=== PATIENT | female | born 1980 | race Caucasian/White ===

== ENCOUNTER 2023-01-11 14:08 | Emergency (ER) | payer OTHER, SELFPAY ==
--- NOTE | ~2023-01-11 | XR_ITS ---
EXAMINATION: XR knee LT min 4V DATE: 01/11/2023 14:36 INDICATION: Left knee pain. Fall. TECHNIQUE: 4 views of left knee were obtained. COMPARISON: None. FINDINGS: Bone alignment is normal. No fracture. There is mild osteoarthritis of patellofemoral kaylynn rtment characterized by a tiny osteophyte. There is no knee joint effusion. IMPRESSION: 1. Mild left knee osteoarthritis. Reviewed, dictated and finalized at location A. NATOR
[2023-01-11 14:19] VITALS: BP 145/68; PULSE 82; RESP 16; TEMP 36.9; O2SAT 100
--- NOTE | 2023-01-11 14:52 | ED.GENADULT ---
HPI - General Adult General Chief complaint: Extremity Injury, Lower Stated complaint: lt knee injury Time Seen by Provider: 01/11/23 14:50 Source: patient, RN notes reviewed and old records reviewed Mode of arrival: ambulatory Limitations: no limitations History of Present Illness HPI narrative: 42 year old female presents to [facility] care with complaints of tripping with fall today heard and felt pop to medial aspect of left knee with pain now across anterior aspect of left knee with some swelling and bruising..Patient reports that she had previous ACL repair to her left knee in 1997. Patient is ambulatory walking with stiff leg gait to her left knee, denies any tingling or numbness to left leg or foot, reports took Tramadol for her discomfort which she takes for her connective tissue disorder with pain under control at present. MD complaint: left knee injury Onset (ago): hour(s) (this morning) Location: left and lower extremity (knee) Severity scale (1-10): 3 Treatments prior to arrival: other (tramadol) Related Data Home Medications Medication Instructions Recorded Confirmed aripiprazole 10 mg tablet mg 01/11/23 buspirone 10 mg tablet mg 01/11/23 etonogestrel 0.12 mg-ethinyl vag ring vaginal 01/11/23 estradiol 0.015 mg/24 hr vaginal ring (EluRyng) sumatriptan succinate 50 mg tablet mg PO 01/11/23 triamterene 37.5 cap 01/11/23 mg-hydrochlorothiazide 25 mg capsule Allergies Allergy/AdvReac Type Severity Reaction Status Date / Time No Known Allergies Allergy Verified 01/11/23 14:38 Review of Systems Review of Systems: CONSTITUTIONAL: Denies fever, chills, or sweats. EYES: Denies visual changes, redness, or discharge. ENT: Denies rhinorrhea, congestion, sore throat, or otalgia. CARDIOVASCULAR: Denies chest pain, palpitations, or edema. RESPIRATORY: Denies cough or dyspnea. GASTROINTESTINAL: Denies abdominal pain, nausea, vomiting, or diarrhea. GENITOURINARY: Denies dysuria or hematuria. SKIN: Denies rash or itching. MUSCULOSKELETAL: Denies back pain, positive for left knee pain , bruising and some swelling, or myalgia. NEUROLOGIC: Denies headache, numbness, or weakness. PSYCHIATRIC:Positive history of anxiety or depression. All systems reviewed & are unremarkable except as noted in HPI and below PMFSH Past Medical History Medical History (Updated 01/12/23 @ 11:39 by Carly See NP) Anxiety and depression Arthritis Connective tissue disorder hips Surgical History Surgical History (Updated 01/12/23 @ 11:34 by Carly See NP) H/O toe surgery left great with hardware History of repair of anterior cruciate ligament of left knee Social History Social History (Updated 01/12/23 @ 11:35 by Carly See NP) Smoking status: Unknown if ever smoked Alcohol intake: unknown Substance use type: does not use Living arrangements: with family Gender identity (if verbalized by the patient): Female Comments At time of signature, agree with nursing past medical, surgical, social and family history. There is no relevant family history pertinent to the presenting complaint Exam Narrative: GENERAL: Well-appearing, well-nourished, and in no acute distress. HEAD: Normocephalic, atraumatic. EYES: PERRLA and EOMI. ENT: Nares clear, no rhinorrhea or epistaxis. Mucous membranes moist.TM's normal with good light refles, throat pink with no lesions or swelling. NECK: Supple.no lymphadenopathy CHEST: Clear to auscultation. No respiratory distress.SAO2 100% on room air HEART: Regular rate and rhythm. No murmur heard. Normal peripheral pulses. ABDOMEN: Soft, nontender, nondistended, normal active bowel sounds. EXTREMITIES: Normal range of motion. No edema.Exception noted to anterior left knee pain with some swelling and bruising from fall, Circulation and sensation intact to left leg and foot, pain with Rom of left knee. SKIN: Warm, dry, no rash. NEURO: No focal deficits. Alert and orien
== END 2023-01-11 15:19 | disposition home or self-care (01) ==
PROVIDERS: Emergency Provider Registered Nurse
DX: S83.92XA Sprain of unspecified site of left knee, initial encounter (principal); W01.0XXA Fall on same level from slipping, tripping and stumbling without subsequent striking against object, initial encounter; M19.90 Unspecified osteoarthritis, unspecified site; L94.9 Localized connective tissue disorder, unspecified
CPT/HCPCS: 73564; 99213; G0463

== ENCOUNTER 2023-06-04 15:32 | Emergency (ER) | payer OTHER, SELFPAY ==
[2023-06-04 15:44] VITALS: BP 122/84; PULSE 76; RESP 16; TEMP 36.6; O2SAT 98
--- NOTE | 2023-06-04 16:16 | ED.DENTAL ---
HPI - Dental/Oral General Chief complaint: Dental/Oral Stated complaint: DENTAL PAIN Time Seen by Provider: 06/04/23 16:11 Source: patient, RN notes reviewed and old records reviewed Mode of arrival: ambulatory Limitations: no limitations History of Present Illness HPI Narrative: 42 year old female who presents to [facility] care with complaints of having dental extraction to left lower gums X4 teeth 3 days ago with Tylenol# 3 and Motrin 800mg prescribed for her discomfort. Patient reports that she has swelling and pain left side of jaw which has not been decreased with her pain medications with increase since yesterday evening. Patient is concerned for infection due to increased swelling or dry socket. Patient has no trismus or any Boris angina is able to control oral secretions on own power. Patient reports that she called her dentist but is out of office on Wednesday.. MD Complaint: tooth pain Duration: constant Severity scale (1-10): 6 Treatment prior to arrival: oral analgesic Related Data Home Medications Medication Instructions Recorded Confirmed aripiprazole 10 mg tablet mg 01/11/23 buspirone 10 mg tablet mg 01/11/23 etonogestrel 0.12 mg-ethinyl vag ring vaginal 01/11/23 estradiol 0.015 mg/24 hr vaginal ring (EluRyng) sumatriptan succinate 50 mg tablet mg PO 01/11/23 triamterene 37.5 cap 01/11/23 mg-hydrochlorothiazide 25 mg capsule Allergies Allergy/AdvReac Type Severity Reaction Status Date / Time No Known Allergies Allergy Verified 01/11/23 14:38 Review of Systems Review of Systems: CONSTITUTIONAL: Denies fever, chills, or sweats. ENT: Denies rhinorrhea, congestion, sore throat, or otalgia. Reports dental pain where 4 teeth were removed 3 days ago from left lower jaw area with some jaw pain and some swelling CARDIOVASCULAR: Denies chest pain, palpitations, or edema. RESPIRATORY: Denies cough or dyspnea. SKIN: Denies rash or itching. MUSCULOSKELETAL: Denies myalgia. NEUROLOGIC: Denies headache All systems reviewed & are unremarkable except as noted in HPI and below PMFSH Past Medical History Medical History (Updated 06/05/23 @ 00:01 by Manny Linda) Anxiety and depression Arthritis Connective tissue disorder hips Surgical History Surgical History (Updated 01/12/23 @ 11:34 by Carly See NP) H/O toe surgery left great with hardware History of repair of anterior cruciate ligament of left knee Social History Social History (Updated 06/05/23 @ 11:16 by Carly See NP) Smoking status: Former smoker Tobacco type: cigarettes Alcohol intake: unknown Substance use type: does not use Living arrangements: with family Gender identity (if verbalized by the patient): Female Comments At time of signature, agree with nursing past medical, surgical, social and family history. There is no relevant family history pertinent to the presenting complaint Exam Narrative: GENERAL: Well-appearing, well-nourished, and in no acute distress. HEAD: Normocephalic, atraumatic. EYES: PERRLA and EOMI. ENT: Nares clear, no rhinorrhea or epistaxis. Mucous membranes moist. Missing teeth, is in process of getting dentures has received upper dentures and now had 4 teeth removed from left lower jaw 3 days ago, some redness of gums noted left lower jaw area with no drainage, patient does have some stated left jaw pain and some swelling, reports that pain has increased since lat evening. taking prescribed meds NECK: Supple.no lymphadenopathy CHEST: Clear to auscultation. No respiratory distress.no trismus or any Boris angina able to control own oral secretions HEART: Regular rate and rhythm. No murmur heard. Normal peripheral pulses. SKIN: Warm, dry, no rash. NEURO: No focal deficits. Alert and oriented x3. Course Course Emergency Course: Patient is aware of diagnosis, understands and agrees to treatment plan. Anticipatory guidance given. Patient agrees to follow-u
== END 2023-06-04 16:27 | disposition home or self-care (01) ==
PROVIDERS: Emergency Provider Registered Nurse; PCP Nurse Practitioner
DX: G89.18 Other acute postprocedural pain (principal); R22.0 Localized swelling, mass and lump, head; Z87.891 Personal history of nicotine dependence; M19.90 Unspecified osteoarthritis, unspecified site; L94.9 Localized connective tissue disorder, unspecified
CPT/HCPCS: 99213; G0463

== ENCOUNTER 2023-08-16 17:42 | Emergency (ER) | payer OTHER, SELFPAY ==
--- NOTE | ~2023-08-16 | XR_ITS ---
EXAM: XR hand RT min 3V DATE: 08/16/2023 17:57 HISTORY: punched wooden sign- hand pain . COMPARISON: None available. FINDINGS: Normal mineralization. Subtle, nondisplaced oblique fracture of the distal aspect of the f ifth metacarpal shaft. No lytic or blastic lesion. Joint spaces are maintained. No erosion or periost eal change. Soft tissues within normal limits. IMPRESSION: Subtle, nondisplaced fracture of the distal aspect of the right fifth metacarpal shaft. Reviewed, dictated and finalized at location K. IMPRESSION: Subtle, nondisplaced fracture of the distal aspect of the right fif th metacarpal shaft.
--- NOTE | 2023-08-16 17:45 | ED.UPPEXIN ---
HPI - Extremity Injury (Upper) General Chief Complaint: Extremity Injury, Upper Stated Complaint: Injured hand Time Seen by Provider: 08/16/23 17:44 Source: patient Mode of arrival: ambulatory Limitations: no limitations History of Present Illness HPI narrative: Missy is a 42-year-old female patient presenting to clinic today with complaints of hand pain x1 day. She reports she punched a would sign yesterday and is now having pain over the 4th and 5th knuckle. Related Data Home Medications Medication Instructions Recorded Confirmed aripiprazole 10 mg tablet 10 mg PO DAILY 01/11/23 08/16/23 buspirone 10 mg tablet 10 mg PO DAILY 01/11/23 08/16/23 etonogestrel 0.12 mg-ethinyl See Rx Instructions .Route .COMPLEX 01/11/23 08/16/23 estradiol 0.015 mg/24 hr vaginal ring (EluRyng) sumatriptan succinate 50 mg tablet 50 mg PO DAILY 01/11/23 08/16/23 triamterene 37.5 37.5 cap PO DAILY 01/11/23 08/16/23 mg-hydrochlorothiazide 25 mg capsule Allergies Allergy/AdvReac Type Severity Reaction Status Date / Time No Known Allergies Allergy Verified 08/16/23 17:51 Review of Systems Review of Systems: Pertinent positives per HPI. Patient denies any fever, chills, rash, headache, visual changes, dizziness, cough, runny nose, sore throat, shortness of breath, chest pain, palpitations, nausea, vomiting, diarrhea, constipation, abdominal pain, or any urinary issues. [facility] Past Medical History Medical History Anxiety and depression Arthritis Connective tissue disorder hips Surgical History Surgical History H/O toe surgery left great with hardware History of repair of anterior cruciate ligament of left knee Social History Social History Smoking status: Former smoker Tobacco type: cigarettes Alcohol intake: unknown Substance use type: does not use Living arrangements: with family Gender identity (if verbalized by the patient): Female Comments At the time of my signature, I reviewed and agree with the nursing past medical, surgical, social, and family history. There is no relevant family history pertinent to the patient complaint. Exam Narrative: General: Well-developed, well nourished, in no apparent distress Head: Normocephalic, atraumatic. Cardio: Regular rate and rhythm, s1 and s2 normal, no murmur appreciated. Resp: Clear to auscultation bilaterally, no rhonchi, rales, wheezing or rubs. Musculoskeletal: No deformity, tender to palpation over the 4th and 5th metacarpals and over the knuckles of the 4th and 5th fingers, limited range of motion due to pain and swelling, muscle strength strong and equal, peripheral pulse strong, no edema, no cyanosis, normal gait and station Course Course Emergency Course: Portions of this record may have been created with voice recognition software. Level of Care: Express Care Visit Vital Signs Vital signs: Vital signs reviewed MDM - Extremity Injury (Upper) MDM Narrative Medical decision making narrative: At the time of visit patient is resting comfortably on the exam table. X-ray shows a nondisplaced subtle distal fracture of the right 5th metacarpal. Ulnar gutter splint was applied and supportive measures were discussed with the patient she voiced understanding discharge instructions. We will have her follow-up with orthopedic and cause office on Wednesday. Arm sling was given. Work note was also given. Differential Diagnosis Differential diagnosis: Likely dislocation of finger, fracture of hand and other (Hand contusion) Imaging Data Radiologist's impression: ITS Impressions Hand X-Ray 08/16/23 17:59 IMPRESSION: Subtle, nondisplaced fracture of the distal aspect of the right fifth metacarpal shaft. Discharge Plan Discharge Clinical Impression
[2023-08-16 17:57] VITALS: BP 139/75; PULSE 78; RESP 16; TEMP 36.3; O2SAT 100
== END 2023-08-16 18:32 | disposition home or self-care (01) ==
PROVIDERS: Emergency Provider Nurse Practitioner Family; PCP Nurse Practitioner
DX: S62.396A Other fracture of fifth metacarpal bone, right hand, initial encounter for closed fracture (principal); F32.A Depression, unspecified; F41.9 Anxiety disorder, unspecified; Z87.891 Personal history of nicotine dependence; Z79.899 Other long term (current) drug therapy; W22.09XA Striking against other stationary object, initial encounter
CPT/HCPCS: 29125; 73130; 99214; A4565; G0463

== ENCOUNTER 2023-10-22 11:05 | Emergency (ER) | payer OTHER, SELFPAY ==
[2023-10-22 11:44] VITALS: BP 118/76; PULSE 92; RESP 16; TEMP 36.8; O2SAT 100
--- NOTE | 2023-10-22 12:35 | ED.URI ---
HPI - URI/Sore Throat General Chief Complaint: Upper Respiratory Infection Stated Complaint: Fever;Cough;Congestion;Body aches Time Seen by Provider: 10/22/23 12:20 Source: family and RN notes reviewed Mode of arrival: ambulatory Limitations: no limitations History of Present Illness HPI Narrative: 43-year-old female who presents to [facility] with complaints of 101.1F fever with chills, headache, cough which is non- productive, head congestion and sneezing since Wednesday morning. Patient reports that she has not taken any medication for her symptoms reports she has been sleeping and drinking fluids. Patient reports that she has generalized body aches which she rates as 6/10 on pain scale. MD elicited complaint: fever, cough, rhinorrhea, nasal congestion and other (body aches) Onset (ago): day(s) (day 3 of symptoms) Pain scale (0-10): 6 Able to tolerate fluids by mouth: Yes Treatments prior to arrival: none Related Data Home Medications Medication Instructions Recorded Confirmed aripiprazole 10 mg tablet 10 mg PO DAILY 01/11/23 10/22/23 buspirone 10 mg tablet 10 mg PO DAILY 01/11/23 10/22/23 etonogestrel 0.12 mg-ethinyl See Rx Instructions .Route .COMPLEX 01/11/23 10/22/23 estradiol 0.015 mg/24 hr vaginal ring (EluRyng) sumatriptan succinate 50 mg tablet See Rx Instructions .Route .COMPLEX 01/11/23 10/22/23 triamterene 37.5 37.5 cap PO DAILY 01/11/23 10/22/23 mg-hydrochlorothiazide 25 mg capsule Allergies Allergy/AdvReac Type Severity Reaction Status Date / Time No Known Allergies Allergy Verified 10/22/23 11:41 Review of Systems Review of Systems: CONSTITUTIONAL: Reports malaise, chills, sweats, or fever. EYES: Denies visual changes, redness, or discharge. ENT: Reports rhinorrhea, congestion, sinus pain,no otalgia and no sore throat. CARDIOVASCULAR: Denies chest pain, palpitations, or edema. RESPIRATORY: Reports cough.? Denies dyspnea. GASTROINTESTINAL: Denies abdominal pain, nausea, vomiting, diarrhea SKIN: Denies rash or itching. MUSCULOSKELETAL: Reports myalgia. NEUROLOGIC: reports headache. 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 Migraine Surgical History Surgical History H/O toe surgery left great with hardware History of repair of anterior cruciate ligament of left knee Social History Social History (Updated 10/22/23 @ 12:54 by Carly See NP) Smoking packs per day: 0.5 Smoking cigarettes per day: 10.0 Years smoked: 30 Smoking pack-years: 15.00 Smoking status: Current every day smoker Tobacco type: cigarettes Alcohol intake: current Alcohol use details: rare social Substance use type: does not use Living arrangements: with family Gender identity (if verbalized by the patient): Female Comments At time of signature, agree with nursing past medical, surgical, social and family history. There is no relevant family history pertinent to the presenting complaint Exam Narrative: GENERAL: Ill-appearing, well-nourished, and in no acute distress. HEAD: Normocephalic EYES: PERRLA, conjunctivae clear ENT: Nares clear, turbinates edematous and erythematous, clear discharge. Mucous membranes moist. TM pearly blanc with dull light reflex bilaterally; no tragal tenderness. Oropharynx erythematous without lesions. Tonsils not enlarged and without exudate, no drooling, no hoarseness, no trismus, uvula midline.post nasal drainage noted NECK: Supple. No lymphadenopathy CHEST: Clear to auscultation, breath sounds equal. No wheezing, rhonchi, rales, or stridor. No respiratory distress, speaks in full sentences.cough present, SAO2 100% on room air HEART: Regula
== END 2023-10-22 13:07 | disposition home or self-care (01) ==
PROVIDERS: Emergency Provider Registered Nurse; PCP Nurse Practitioner
DX: J10.1 Influenza due to other identified influenza virus with other respiratory manifestations (principal); Z20.822 Contact with and (suspected) exposure to COVID-19; F17.210 Nicotine dependence, cigarettes, uncomplicated; M19.90 Unspecified osteoarthritis, unspecified site; H81.03 Meniere's disease, bilateral; F41.9 Anxiety disorder, unspecified; F32.A Depression, unspecified
CPT/HCPCS: 87426; 87804; 99213; C9803; G0463

== ENCOUNTER 2024-02-28 14:40 | Emergency (ER) | payer OTHER, SELFPAY ==
--- NOTE | 2024-02-28 14:47 | ED.EAR ---
HPI - Ear Problem General Chief complaint: Ear Stated complaint: R ear pain Time Seen by Provider: 02/28/24 14:56 Source: patient and RN notes reviewed Mode of arrival: ambulatory Limitations: no limitations History of Present Illness HPI Narrative: 43-year-old female presents with concern for right ear pain since this morning. She reports she has had a couple day history of nasal congestion or rhinorrhea. She denies fevers. Denies drainage from the ear. MD Complaint: ear pain Related Data Home Medications Medication Instructions Recorded Confirmed aripiprazole 10 mg tablet 10 mg PO DAILY 01/11/23 02/28/24 buspirone 10 mg tablet 10 mg PO DAILY 01/11/23 02/28/24 etonogestrel 0.12 mg-ethinyl See Rx Instructions .Route .COMPLEX 01/11/23 02/28/24 estradiol 0.015 mg/24 hr vaginal ring (EluRyng) sumatriptan succinate 50 mg tablet See Rx Instructions .Route .COMPLEX 01/11/23 02/28/24 triamterene 37.5 37.5 cap PO DAILY 01/11/23 02/28/24 mg-hydrochlorothiazide 25 mg capsule Allergies Allergy/AdvReac Type Severity Reaction Status Date / Time No Known Allergies Allergy Verified 02/28/24 14:54 Review of Systems Review of Systems: CONSTITUTIONAL: Denies malaise, chills, sweats, or fever. EYES: Denies visual changes, redness, or discharge. ENT: Reports rhinorrhea, congestion. Denies sinus pain, and sore throat. Reports right ear pain CARDIOVASCULAR: Denies chest pain, palpitations, or edema. RESPIRATORY: Denies cough. Denies dyspnea. GASTROINTESTINAL: Denies abdominal pain, nausea, vomiting, diarrhea SKIN: Denies rash or itching. MUSCULOSKELETAL: Denies myalgia. NEUROLOGIC: Denies headache. 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 Migraine Surgical History Surgical History H/O toe surgery left great with hardware History of repair of anterior cruciate ligament of left knee Social History Social History (Updated 10/22/23 @ 12:54 by Carly See NP) Smoking packs per day: 0.5 Smoking cigarettes per day: 10.0 Years smoked: 30 Smoking pack-years: 15.00 Smoking status: Current every day smoker Tobacco type: cigarettes Alcohol intake: current Alcohol use details: rare social Substance use type: does not use Living arrangements: with family Gender identity (if verbalized by the patient): Female Comments At time of signature, agree with nursing past medical, surgical, social and family history. There is no relevant family history pertinent to the presenting complaint Exam Narrative: GENERAL: Well-appearing, well-nourished, and in no acute distress. HEAD: Normocephalic EYES: PERRLA, conjunctivae clear ENT: Nares clear, turbinates edematous, clear discharge. Mucous membranes moist. TM pearly blanc with sharp light reflex bilaterally; no tragal tenderness. Oropharynx not erythematous without lesions. Tonsils not enlarged and without exudate, no drooling, no hoarseness, no trismus, uvula midline. NECK: Supple. No lymphadenopathy CHEST: Clear to auscultation, breath sounds equal. No wheezing, rhonchi, rales, or stridor. No respiratory distress, speaks in full sentences. HEART: Regular rate and rhythm. No murmur heard. SKIN: Warm, dry, no rash. NEURO: Alert and oriented x3. PSYCH: Normal mood and affect Course Course Emergency Course: Patient is aware of diagnosis, understands and agrees to treatment plan. Anticipatory guidance given. Patient agrees to follow-up as directed and is aware of reasons to seek care at the emergency department. Portions of this record may have been created with voice recognition software Level of Care: Express Care Visit Vital Signs Vital signs: Reviewed.
[2024-02-28 14:52] VITALS: BP 122/76; PULSE 73; RESP 18; TEMP 36.7; O2SAT 98
[2024-02-28 14:55] VITALS: BP 122/76; PULSE 73; RESP 18; TEMP 36.7; O2SAT 98
== END 2024-02-28 15:10 | disposition home or self-care (01) ==
PROVIDERS: Emergency Provider Nurse Practitioner; PCP Nurse Practitioner
DX: H92.01 Otalgia, right ear (principal); F17.210 Nicotine dependence, cigarettes, uncomplicated; M19.90 Unspecified osteoarthritis, unspecified site; F41.9 Anxiety disorder, unspecified; F32.A Depression, unspecified; L94.9 Localized connective tissue disorder, unspecified
CPT/HCPCS: 99213; G0463

== ENCOUNTER 2024-07-24 17:31 | Emergency (ER) | payer OTHER, SELFPAY ==
--- NOTE | ~2024-07-24 | XR_ITS ---
EXAM: XR knee RT min 4V DATE: 07/24/2024 19:12 HISTORY: Missed a step on Wednesday. Posterior lt knee pain . COMPARISON: None available. FINDINGS: Normal mineralization. Irregular ossific densities adjacent to the lateral condyle and the head of the fibula. No lytic or blastic lesion. Minimal tricompartmental osteoarthritic change. No e rosion or periosteal change. Soft tissues within normal limits. IMPRESSION: Possible acute versus chronic avulsion fractures at the origin of the LCL as well as the arcuate ligament complex. Consider MRI of the knee for further evaluation. Reviewed, dictated and finalized at location K. IMPRESSION: Possible acute versus chronic avulsion fractures at the origin of t he LCL as well as the arcuate ligament complex. Consider MRI of the knee for fu rther evaluation.
[2024-07-24 18:02] VITALS: BP 154/59; PULSE 64; RESP 18; TEMP 36.6; O2SAT 99
[2024-07-24 18:03] VITALS: BP 154/59; PULSE 64; RESP 18; TEMP 36.6; O2SAT 99
--- NOTE | 2024-07-24 18:49 | ED.LOWEXIN ---
HPI - Extremity Injury (Lower) General Chief Complaint: Extremity Injury, Lower Stated Complaint: RT Knee Pain Time Seen by Provider: 07/24/24 18:49 Source: patient, RN notes reviewed and old records reviewed Mode of arrival: ambulatory Limitations: no limitations History of Present Illness HPI Narrative: Patient presents with complaints of right knee pain after missing a step 3 days ago. She denies any falls, reports that she had a twisting type injury to the knee. She has had pain since that time. She has been icing it and using [id number] medications with poor relief. She reports sensation of the affected knee catching . She denies other injury and trauma. Voices no other concerns or complaints at this time. Related Data Home Medications Medication Instructions Recorded Confirmed aripiprazole 10 mg tablet 10 mg PO DAILY 01/11/23 07/24/24 buspirone 10 mg tablet 10 mg PO DAILY 01/11/23 07/24/24 etonogestrel 0.12 mg-ethinyl See Rx Instructions .Route .COMPLEX 01/11/23 07/24/24 estradiol 0.015 mg/24 hr vaginal ring (EluRyng) sumatriptan succinate 50 mg tablet See Rx Instructions .Route .COMPLEX 01/11/23 07/24/24 triamterene 37.5 37.5 cap PO DAILY 01/11/23 07/24/24 mg-hydrochlorothiazide 25 mg capsule Allergies Allergy/AdvReac Type Severity Reaction Status Date / Time No Known Allergies Allergy Verified 07/24/24 18:03 Review of Systems Review of Systems: All systems reviewed & are unremarkable except as noted in HPI and below Constitutional: Constitutional: Reports no additional constitutional complaints ENT: Reports system reviewed and no additional complaints, except as documented Cardiovascular: Cardiovascular: Reports no additional cardiovascular complaints Respiratory: Respiratory: Reports no additional respiratory complaints Gastrointestinal: Gastrointestinal: Reports no additional gastrointestinal complaints Musculoskeletal: Musculoskeletal: Reports as per HPI and Reports arthralgias (right knee) [facility] Past Medical History Medical History Anxiety and depression Arthritis 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 Migraine Surgical History Surgical History H/O toe surgery left great with hardware History of repair of anterior cruciate ligament of left knee Social History Social History (Updated 10/22/23 @ 12:54 by Carly See NP) Smoking packs per day: 0.5 Smoking cigarettes per day: 10.0 Years smoked: 30 Smoking pack-years: 15.00 Smoking status: Current every day smoker Tobacco type: cigarettes Alcohol intake: current Alcohol use details: rare social Substance use type: does not use Living arrangements: with family Gender identity (if verbalized by the patient): Female Comments At the time of my signature, I reviewed and agree with the nursing past medical, surgical, social, and family history. There is no relevant family history pertinent to the patient complaint. Exam Const: General: cooperative, no acute distress, alert and awake Orientation/consciousness: oriented to person, oriented to place and oriented to time HENMT: Head: normal to inspection Resp: Effort & Inspection: normal respiratory effort and able to speak in complete sentences Auscultation: clear to auscultation bilaterally, no crackles, no rales, no rhonchi and no wheezes Cardio: Palpation: normal PMI Rate: regular rate Rhythm: regular rhythm Heart sounds: S1 normal heart sound present and S2 normal heart sound present Neuro: General: oriented to person, oriented to place and oriented to time Cranial nerves: Yes CN's II-XII intact bilaterally Extrem: Right lower extremity: knee Details: tenderness Location: of the patella and crepitus Psych: Appearance: grossly normal Thought process: Normal thought process present Insight: Kali
== END 2024-07-24 19:43 | disposition home or self-care (01) ==
PROVIDERS: Emergency Provider Nurse Practitioner Family; PCP Nurse Practitioner
DX: S89.91XA Unspecified injury of right lower leg, initial encounter (principal); X50.9XXA Other and unspecified overexertion or strenuous movements or postures, initial encounter; R03.0 Elevated blood-pressure reading, without diagnosis of hypertension; M19.90 Unspecified osteoarthritis, unspecified site; L94.9 Localized connective tissue disorder, unspecified; H81.03 Meniere's disease, bilateral; F17.210 Nicotine dependence, cigarettes, uncomplicated; F41.9 Anxiety disorder, unspecified; F32.A Depression, unspecified
CPT/HCPCS: 73564; 99213; G0463

== ENCOUNTER 2024-08-16 08:07 | Outpatient (CLI) | payer OTHER, SELFPAY ==
--- NOTE | ~2024-08-16 | MR_ITS ---
EXAMINATION: MR knee RT wo con DATE: 08/16/2024 08:44 INDICATION: Right knee injury. TECHNIQUE: Magnetic resonance imaging (MRI) of the right knee was performed without intravenous contr ast. Sequences included axial PD-weighted FS FSE, coronal PD-weighted FSE and PD-weighted FS FSE, sag ittal PD-weighted FSE, and sagittal T2-weighted FS FSE. COMPARISON: Right knee radiographs 07/24/2024 FINDINGS: Medial compartment: Medial meniscus is normal. There is shallow partial-thickness cartilage loss of tibial condyle and fe moral condyle. Lateral compartment: Lateral meniscus is normal. Lateral compartment cartilage is normal. Patellofemoral compartment: Patellar cartilage is normal. Trochlear cartilage is normal. Ligaments and tendons: The anterior and posterior cruciate ligaments are normal. There are changes of prior sprains of media l collateral ligament and fibular collateral ligament characterized by thickening and increased signa l intensity proximally. There is mild patellar tendinopathy. Fluid: There is a small knee joint effusion. IMPRESSION: 1. Mild chondrosis of medial compartment. 2. Small knee joint effusion. Reviewed, dictated and finalized at location A.
== END 2024-08-16 08:08 | disposition home or self-care (01) ==
LOC: MICIMG 08:09
PROVIDERS: PCP Nurse Practitioner; Visit Provider Nurse Practitioner
DX: S89.91XD Unspecified injury of right lower leg, subsequent encounter (principal); M94.261 Chondromalacia, right knee; M25.461 Effusion, right knee; X58.XXXD Exposure to other specified factors, subsequent encounter
CPT/HCPCS: 73721

== ENCOUNTER 2025-08-13 01:40 | Day surgery (SDC) | payer OTHER, SELFPAY ==
[2025-08-03 15:17] VITALS: BMI 33.8
--- NOTE | 2025-08-03 15:25 | PC.NURSE ---
[facility] has started construction of its new state of the art ER which will open Spring 2026. With this, we anticipate parking may be a challenge for some our surgical patients and families. Parking spaces are limited but are available for all Surgical, obstetrics, and ER patients sharing this lot. If you arrive and find you are having a hard time finding a parking space, please note that we understand the challenges, please drive around the hospital and park near Hospital Entrance 1. When you enter this entrance, you can ask a volunteer to direct or take you back to the surgical waiting area to check in. We appreciate everyone?s understanding of these expected challenges while we build for your future. Report to the Outpatient Waiting Room, entrance under the green pavilion located off [address], at time _0700_ on date _[id number]_. Planned Procedure Time: _0900_.? Time changes happen often and if your time is changed the preop area will call you the afternoon before. - You and your visitor will be asked to self-screen and do not enter if you have any COVID symptoms. Please call surgeon if you need to reschedule. - A mask is optional within the hospital at this time. Patients may have clear liquids (water, carbonated beverages, clear teas, apple juice) until 3 hours prior to surgery with a maximum of 20 ounces. - No food from midnight until time of surgery and no smoking, or chewing tobacco (or any form of nicotine). No chewing gum, candy or mints. Take only the following medications with a SIP of water on the morning of surgery: ___Aripiprazole, and Buspirone.___ DO NOT STOP ANY OF YOUR OTHER PRESCRIPTION MEDICATIONS PRIOR TO SURGERY EXCEPT THE FOLLOWING Hold all vitamins and supplements for 3 days per anesthesiologist. Medications to discontinue per physician Date to take last dose Please no make-up, nail korean, hairspray, perfume, deodorant, or body powder the day of surgery.? No jewelry (including any body piercings) or valuables the day of surgery, leave them at home.? Please take a shower or bath the night before, or the morning of, surgery with an antibacterial soap.? Wear comfortable, loose fitting clothing.? - Jewelry must be removed prior to entering the operating room.? Rings and piercings that are not removed may be cut off. - The hospital will not accept responsibility for valuables.? - Please leave all valuables, including medications, at home the day of surgery. If you are going home after surgery, a licensed drop hammer pile driver operator must drive you home.? - NO public transportation without another adult if you receive anesthesia. - We recommend that an adult stay with you for 24 hours following discharge. - We also recommend that you do not drive, make important decision, drink alcoholic beverages, or take any drugs that were not prescribed by your health care provider for at least 24 hours after your discharge time. Follow any additional instructions given to you from your surgeon. Telephone instructions given to __Missy___and asked if any additional questions and then verbalized understanding. Patient advised to call surgeon office or pre surgery nurse liaison [phone] if any additional questions.
[2025-08-13] VITALS (8 sets, daily range): BP systolic 100–127; BP diastolic 54–73; PULSE 58–105; RESP 12–24; TEMP 36.2–36.6; O2SAT 98–100
--- OUTSIDE RECORDS SUMMARY | 2025-08-13 01:43 | XMS_ITS | Clinical Summary ---
Author Organization [facility] [address] Address [address] [place] [address] Care Team Providers Care Sieve Grader Tender Name Role Phone Sierra Martin Jane SHASHANK Primary Care Provider [phone] Allergies No known active allergies Medications busPIRone (BUSPAR) 10 mg tablet Take 1 tablet (10 mg total) by mouth daily 2 Active etonogestreL-et hinyl estradioL (NUVARING, ELURYNG) 0.12-0.015 mg/24 hr vaginal ring INSERT 1 R[address] VAGINALLY. LEAVE IN PLACE FOR 21 DAYS, THEN REMOVE. LEAVE OUT FOR 7 DAYS BEFORE REPEAT 8 Active ARIPiprazole (ABILIFY) 10 mg tablet Take 1 tablet (10 mg total) by mouth daily 4 Active traZODone (DESYREL) 50 mg tablet Take 1 tablet (50 mg total) by mouth nightly as needed Active nicotine (NICODERM CQ) [address] 1 patch on the skin daily for 24 hours 30 patch 5 Active nicotine polacrilex (NICORETTE) 4 mg gum Chew 1 each (4 mg total) as needed for smoking cessation 100 each 5 Active Active Problems Problem Noted Date Diagnosed Date TALISHA (acute kidney injury) 05/25/2025 Migraine syndrome 05/25/2025 Sensorineural hearing loss ( SNHL) of right ear with unrestricted hearing of left ear 05/27/2022 Assessment & Plan (07/06/2022 8:33 PM CDT): It actually has gotten worse since I last saw her. This is despite treating with steroids. I am recommending an MRI scan further evaluate. Consider intratympanic steroids if negative. She understands. Assessment & Plan (05/27/2022 7:37 PM CDT): Reviewed her audiogram with her. She has a low-frequency sensorineural hearing loss involving the right ear. This would be pretty consistent with Meniere's disease. I recommended treating with a steroid. I am also going to place her on a diuretic. I think that her follow up in about 4 weeks and will retest her hearing at that time. Meniere's disease of right ear 05/27/2022 Assessment & Plan (07/01/2022 12:57 PM CDT): She continues with symptoms although states that the symptoms are better. I am going to check up VNG to evaluate vestibular function. I will call her when I have results. Assessment & Plan (05/27/2022 7:38 PM CDT): I talked with the patient about Meniere's disease. It can usually be treated medically which often times means prescribing a steroid to help with acute symptoms. Sometimes a diuretic will be included if the symptoms are frequently recurrent or persistent. A low-salt diet is also recommended because most of the evidence shows that Meniere's disease is caused by excess fluid in the inner ear space. Sometimes Meniere's disease can be refractory to medical treatment and in those cases there are various surgical procedures that may be recommended. I am recommending treating with a steroid and I would like to get her started on antibiotic. She would like to go ahead and do that also. I also talked with her about low-salt diet which is very important. She understands this. The plan is for a follow-up in about a month. Dizziness and giddiness 05/27/2022 Assessment & Plan (05/27/2022 7:36 PM CDT): Likely due to Meniere's disease. Mood disorder 02/14/2020 Decreased libido 09/14/2018 Anxiety 06/01/2018 Viral bronchitis 11/26/2017 Dysmenorrhea 08/11/2017 Migraines 08/04/2017 Dyspareunia, female 07/28/2017 Irregular menses 07/28/2017 Encounters Date Type Department Care Team Description 05/25/2025 3:17 PM CDT - 05/26/2025 10:21 AM CDT Hospital Encounter [place] [address] Med Surg [facility] [place] [address] Nicola Baez MD [place], Katy Lopez MD TALISHA (acute kidney injury) (Primary Dx); Nonintractable headache, unspecified chronicity pattern, unspecified headache type; Stroke-like symptoms Discharge Disposition: Discharge to home or self care from Last 3 Months Immunizations Immunization Administration Dates Next Due DTP 06/02/1989, 6,03/01/1982,12/28,1981 H1N1 All Forms 10/15/2009 Influenza, Quadrivalent, Spl it, Intramuscular 10/21/2015 Influenza, Trivalent, IM (MDV) 09/06/2014 Influenza, Unspecified 10/11/2013,10/28/2012 MMR 08/01/1998,01/09/1983 OPV 06/07/1986, 2,1981,11/04 OPV, Unspecified 06/07/1986, 2,1981,11/04 Pneumococcal Polysaccharide PPV23 01/15/2015 Td, adsorbed 08/01/1998 Tdap 11/13/2014,11/08/2014 Surgical History Surgery Date Site/Laterality Comments KNEE SURGERY Left Medical History Medical History Date Comments Allergic rhinitis Cancer (HCC) Depression Tinnitus Dizziness Family History Medical History Relation Name Comments Diabetes Brother Cancer Father Diabetes Father Relation Name Status Comments Brother Father Social History Tobacco Use Types Packs/Day Years Used Date Smoking Tobacco: Former Cigarettes Smokeless Tobacco: Never Personal Safety Answer Date Recorded Have you ever been in or are you currently in a harmful physical or emotional relationship or is someone making you feel afraid or unsafe? Denies 05/25/2025 Comments No Sex and Gender Information Value Date Recorded Sex Assigned at Not on file Legal Sex Female 11:48 PM [employer] Gender Identity Not on file Sexual Orientation Not on file Obstetrics History Last Filed Vital Signs Vital Sign Reading Time Taken Comments Blood Pressure 105/56 05/26/2025 8:08 AM CDT Pulse 64 05/26/2025 8:08 AM CDT Temperature 37.1 C (98.8 F) 05/26/2025 8:08 AM CDT Respiratory Rate 18 05/26/2025 8:08 AM CDT Oxygen Saturation 95% 05/26/2025 8:08 AM CDT Inhaled Oxygen Concentration - - Weight 89.5 kg (197 lb 5 oz) 05/25/2025 8:43 PM CDT Height 157.5 cm (5' 2) 05/25/2025 8:53 PM CDT Body Mass Index 36.09 05/25/2025 8:43 PM CDT Plan of Treatment Health Maintenance Due Date Last Done Comments Depression Screening 1981 Hepatitis C Screening 1981 Varicella Vaccines (1 of 2 - 13+ 2-dose series) 08/29/1998 Hepatitis B Screening 1999 Regular Well Visit/Exam 18-64 1999 HPV Vaccines (1 - 3-dose SCDM series) 2008 Cervical Cancer Screening 09/17/2022 09/17/2021 DTaP/Tdap/Td Vaccine (7 - Td or Tdap) 11/13/2024 11/13/2014, 11/08/2014, 08/01/1998, Additional history exists Influenza Vaccine (#1) 2025 5, 09/06/2014, 10/11/2013, Additional history exists Breast Cancer Screening-Mammogram 12/06/2025 12/06/2024, 12/06/2024, 12/08/2023, Additional history exists Pneumococcal vaccine <65 Aged Out 01/15/2015 No longer eligible based on patient's age to complete this topic Procedures Procedure Name Priority Date/Time Associated Diagnosis Comments EGFR Routine 05/26/2025 3:13 AM CDT DIFFERENTIAL AUTO Routine 05/26/2025 3:1 3 AM CDT CBC WITH AUTO DIFFERENTIAL Routine 05/26/2025 3:13 AM CDT BASIC METABOLIC PANEL Routine 05/26/2025 3:13 AM CDT TROPONIN T HIGH-SENSITIVITY 6-HOUR Timed 05/25/2025 9:13 PM CDT CRP (ACUTE PHASE) Routine 05/25/2025 7:2 6 PM CDT ERYTHROCYTE SEDIMENTATION RATE Routine 05/25/2025 7:26 PM CDT TROPONIN T HIGH-SENSITIVITY 4-HR Timed 05/25/2025 7:26 PM CDT TROPONIN T HIGH-SENSITIVITY 2-HOUR Timed 05/25/2025 5:26 PM CDT MRI BRAIN HYPERACUTE STROKE W WO CONTRAST Critical/Life-T hreatening 05/25/2025 5:00 PM CDT POCT CREATININE FOR CONTRAST EVALUATION Routine 05/25/2025 4:12 PM CDT URINALYSIS AND REFLEX TO MICROSCOPIC AND CULTURE STAT 05/25/2025 4:11 PM CDT EGFR STAT 05/25/2025 4:09 PM CDT BASIC METABOLIC PANEL STAT 05/25/2025 4:09 PM CDT POCT HCG, URINE Routine 05/25/2025 4:05 PM CDT ECG 12-LEAD STAT 05/25/2025 3:[address] STROKE PROTOCOL WO CONTRAST Critical/Life-T hreatening 05/25/2025 3:13 PM CDT APTT STAT 05/25/2025 3:10 PM CDT PROTIME-INR STAT 05/25/2025 3:10 PM CDT EGFR STAT 05/25/2025 3:05 PM CDT DIFFERENTIAL AUTO STAT 05/25/2025 3:0 5 PM CDT TROPONIN T HIGH-SENSITIVITY SERIES (BASELINE, 2HR, 4HR, 6HR) STAT 05/25/2025 3:05 PM CDT COMPREHENSIVE METABOLIC PANEL STAT 05/25/2025 3:05 PM CDT CBC WITH AUTO DIFFERENTIAL STAT 05/25/2025 3:05 PM CDT POCT GLUCOSE DEVICE Routine 05/25/2025 3 :03 PM CDT from Last 3 Months Results * (ABNORMAL) eGFR (05/26/2025 3:13 AM CDT) eGFR 50(L) >=60 mL/min/1. 73 m2 Comment: Interpretive Data Reference Interval Normal >/= 90 mL/min/1.73m2 Mildly decreased* 60 - 89 mL/min/1.73m2 Mildly to moderately decreased 45 - 59 mL/min/1.73m2 Moderately to severely decreased 30 - 44 mL/min/1.73m2 Severely decreased 15 - 29 mL/min/1.73m2 Kidney Failure < 15 mL/min/1.73m2 *Relative to young adult level Estimated glomerular filtration rate is determined by the 2020 CKD-EPI equation recommended by the National Kidney Foundation (A Unifying Approach to GFR Estimation: Recommendations of the NKF-ASK Task Force on Reassessing the Inclusion of Race in Diagnosing Kidney Disease, JASN 202). The CKD-EPI equation should not be used for patients with unstable renal function and has not been validated in children and those over 70. Current interpretive data was last reviewed 2021. Testing performed by: [facility], [address] [place] [address]., [address] Blood 05/26/2025 3:13 AM CDT 05/26/2025 4:17 AM CDT us Katy Perry MD LAB BLOOD ORDERABLES Final Result S[facility]AN [address] [facility] Department [place] [address] * Differential, auto (05/26/2025 3:13 AM CDT) Neutrophil abs 3.38 1.50 - 6.50 K/cumm Comment:Testing performed by : [address] [address] Imm gran abs 0.02 0.00 - 0.10 K/cumm SUSAN Comment:Testing performed by : [address] [address] Lymphocyte abs 2.20 0.80 - 3.30 K/cumm SUSAN Comment:Testing performed by : [address] [address] Monocyte abs 0.50 0.20 - 0.80 K/cumm SUSAN Comment:Testing performed by : [address] [address] Eosinophil abs 0.21 0.00 - 0.50 K/cumm SUSAN Comment:Testing performed by : [address] [address] Basophil abs 0.04 0.00 - 0.10 K/cumm SUSAN Comment:Testing performed by : [address] [address] Neutrophil pct 53.3 % SUSAN Comment: Interpretive Data Percent cell count reference ranges are not reported, since discordance with absolute values may lead to misinterpretation of CBC data. Current Interpretive Data was last revised on 2018. Testing performed by: [address] [address] Imm gran pct 0.3 % SUSAN Comment: Interpretive Data Percent cell count reference ranges are not reported, since discordance with absolute values may lead to misinterpretation of CBC data. Current Interpretive Data was last revised on 2018. Testing performed by: [address] [address] Lymphocyte pct 34.6 % [facility] Comment: Interpretive Data Percent cell count reference ranges are not reported, since discordance with absolute values may lead to misinterpretation of CBC data. Current Interpretive Data was last revised on 2018. Testing performed by: [address] [address] Monocyte pct 7.9 % [facility] Comment: Interpretive Data Percent cell count reference ranges are not reported, since discordance with absolute values may lead to misinterpretation of CBC data. Current Interpretive Data was last revised on 2018. Testing performed by: [address] [address] Eosinophil pct 3.3 % [facility] Comment: Interpretive Data Percent cell count reference ranges are not reported, since discordance with absolute values may lead to misinterpretation of CBC data. Current Interpretive Data was last revised on 2018. Testing performed by: [address] [address] Basophil pct 0.6 % [facility] Comment: Interpretive Data Percent cell count reference ranges are not reported, since discordance with absolute values may lead to misinterpretation of CBC data. Current Interpretive Data was last revised on 2018. Testing performed by: [address] [address] Blood 05/26/2025 3:13 AM CDT 05/26/2025 4:18 AM CDT us Katy Perry MD LAB BLOOD ORDERABLES Final Result [facility] [address] [facility] Department [place] [address] * CBC with auto differential (05/26/2025 3:13 AM CDT) WBC 6.35 3.80 - 9.90 K/cumm Comment:Testing performed by : [address] [address] Hgb 12.5 11.9 - 15.5 g/dL SUSAN Comment:Testing performed by : [address], [address] Hct 36.6 35.6 - 45.5 % SUSAN Comment:Testing performed by : [address], [address] Plt 210 150 - 400 K/cumm SUSAN Comment:Testing performed by : [address] [address] MPV 12.0 9.1 - 12.3 fL SUSAN Comment:Testing performed by : [address], [address] RBC 4.10 3.90 - 5.20 M/cumm SUSAN Comment:Testing performed by : [address], [address] MCV 89.3 81.3 - 96.4 fL SUSAN Comment:Testing performed by : [address], [address] MCH 30.5 27.1 - 33.3 pg SUSAN Comment:Testing performed by : [address], [address] MCHC 34.2 32.3 - 35.7 g/dL SUSAN Comment:Testing performed by : [address], [address] RDW CV 13.0 11.1 - 14.9 % SUSAN Comment:Testing performed by : [address], [address] RDW SD 42.4 35.7 - 48.1 fL SUSAN Comment:Testing performed by : [address], [address] NRBC abs 0.00 0.00 - 0.01 K/cumm SUSAN Comment:Testing performed by : [address], [address] Blood 05/26/2025 3:13 AM CDT 05/26/2025 4:18 AM CDT Katy Perry MD LAB BLOOD ORDERABLES Final Result [facility] [address] [facility] Department [place] [address] * (ABNORMAL) Basic metabolic panel (05/26/2025 3:13 AM CDT) Sodium 140 135 - 145 mmol/L Comment:Testing performed by : [address] [address] Potassium, pl 3.2(L) 3.3 - 4.9 mmol/L SUSAN Comment:Testing performed by : [address] [address] Chloride 105 97 - 110 mmol/L SUSAN Comment:Testing performed by : [address] [address] CO2 24 22 - 32 mmol/L SUSAN Comment:Testing performed by : [address] [address] Anion gap 11 2 - 15 mmol/L SUSAN Comment:Testing performed by : [address] [address] BUN 16 6 - 25 mg/dL SUSAN Comment:Testing performed by : [address] [address] Creatinine 1.36(H) 0.60 - 1.10 mg/dL SUSAN Comment:Testing performed by : [address] [address] Glucose 104 70 - 199 mg/dL SUSAN Comment: Interpretive Data Fasting glucose >/= 126 mg/dl is diagnostic for diabetes. Fasting is defined as no caloric intake for at least 8 hours. Fasting glucose between 100 mg/dl to 125 mg/dl is diagnostic of prediabetes. In a patient with classic symptoms of hyperglycemia or hyperglycemic crisis, a random glucose >/= 200 mg/dl is diagnostic for diabetes. In the absence of unequivocal hyperglycemia, results should be confirmed by repeat testing. The classification and Diagnosis of Diabetes Diabetes Care 2021; 46: S19-S40. Current interpretive data was last revised 2022. Testing performed by: [address] [place] [address] Calcium 8.8 8.5 - 10.3 mg/dL SUSAN SWAN Comment:Testing performed by : [address] [address] Blood 05/26/2025 3:13 AM CDT 05/26/2025 4:17 AM CDT Katy Perry MD LAB BLOOD ORDERABLES Final Result Performing Organization Address City/[facility]/ZIP Co de Phone Number SUSAN [address] [facility] [email or web address] [address] * Troponin T high-sensitivity 6-hour (05/25/2025 9:13 PM CDT) Trop T hs 10 <=14 ng/L Comment: Interpretive Data For further hscTnT resources including the diagnostic algorithm and an aid in interpretation, copy and paste this link: https://nrl.testcatalog.org/show/hsTrop Current Interpretive Data last revised 2020. Testing performed by: [address] [address] Trop T hs delta 2 ng/L SUSAN SWAN Comment:Testing performed by : [address] [address] Trop T hs interp Insignificant SUSAN SWAN Comment:Testing performed by : [address] [address] Blood 05/25/2025 9:13 PM CDT 05/25/2025 9:15 PM CDT us Yovany Mckay MD LAB BLOOD ORDERABLES Final Result Performing Organization Address City/[facility]/ZIP Co de Phone Number SUSAN [address] [facility] [email or web address] [address] * Troponin T high-sensitivity 4-hour (05/25/2025 7:26 PM CDT) Trop T hs 9 <=14 ng/L Comment: Interpretive Data For further hscTnT resources including the diagnostic algorithm and an aid in interpretation, copy and paste this link: https://nrl.testcatalog.org/show/hsTrop Current Interpretive Data last revised 2020. Testing performed by: [address] [address] Trop T hs delta 1 ng/L SUSAN Comment:Testing performed by : [address] [address] Trop T hs interp Insignificant SUSAN Comment:Testing performed by : [address] [address] Blood 05/25/2025 7:26 PM CDT 05/25/2025 7:36 PM CDT us Yovany Mckay MD LAB BLOOD ORDERABLES Final Result Performing Organization Address [facility]/ZIP Co de Phone Number [address] [place] [address] * Erythrocyte sedimentation rate (05/25/2025 7:26 PM CDT) Pathologist [facility] Erythrocyte sedimentation rate 4 1 - 20 mm/hr Comment:Testing performed by : [address] [address] Blood 05/25/2025 7:26 PM CDT 05/25/2025 7:36 PM CDT us Katy Perry MD LAB BLOOD ORDERABLES Final Result [address] [address] * (ABNORMAL) CRP (acute phase) (05/25/2025 7:26 PM CDT) Pathologist [facility] CRP 12.8(H) <=10.0 mg/L Comment:Testing performed by : [address] [address] Blood 05/25/2025 7:26 PM CDT 05/25/2025 7:36 PM CDT us Katy Perry MD LAB BLOOD ORDERABLES Final Result Performing Organization Address [facility] Co de Phone Number SUSAN [address] [place] [address] * Troponin T high-sensitivity 2-hour (05/25/2025 5:26 PM CDT) Trop T hs 8 <=14 ng/L Comment: Interpretive Data For further hscTnT resources including the diagnostic algorithm and an aid in interpretation, copy and paste this link: https://nrl.testcatalog.org/show/hsTrop Current Interpretive Data last revised 2020. Testing performed by: [address] [address] Trop T hs delta 0 ng/L SUSAN Comment:Testing performed by : [address] [address] Trop T hs interp Insignificant SUSAN Comment:Testing performed by : [address] [address] Blood 05/25/2025 5:26 PM CDT 05/25/2025 5:34 PM CDT us Yovany Mckay MD LAB BLOOD ORDERABLES Final Result Performing Organization Address [facility] de Phone Number [facility] [address] [place] [address] * MRI Brain Hyperacute Stroke W WO Contrast (05/25/2025 5:00 PM CDT) Anatomical Region Laterality Modality Head and Neck N/A Magnetic Resonan ce 05/25/2025 5:00 PM CDT Narrative 05/25/2025 5:04 PM CDT EXAM DESCRIPTION: MRI BRAIN HYPERACUTE STROKE W WO CONTRAST REASON FOR STUDY: 44-year-old woman past medical history of migraines sensorineural hearing loss of right ear anxiety who presents to the ED for complaints of acute onset left-sided headache along with right eye visual blurriness and some numbness in her left arm. Patient states she was at work when she suddenly had this pain in her head it started in her left parietal and wrapped around to her right side she feels like it is a gripping sensation. This is not typical of her migraines which is more of a stabbing sensation and unilateral. The neurological deficits soon followed simultaneously as the headache began. She describes the pain as a 6/10 in severity. And she came here to the ED immediately for evaluation. Her last known well was noon. Her NIH stroke scale was 3/10 her deficits are visual lopez somewhat compromise specifically in the right eye and right lower area she has some sensory difference in her left arm compared to her right arm and she has a bit of a lisp which we considered to be mild dysarthria on when she was pronouncing words. TECHNIQUE: Multiplanar imaging includes noncontrast T1, T2, FLAIR, diffusion with ADC map and post contrast T1 sequences. Additional sequence(s) sensitive to blood products. Images stored on PACS. CONTRAST TYPE/DOSE: 18mL of GADOTERATE MEGLUMINE 0.5 MMOL/ML INTRAVENOUS SOLUTION (SO) injected via intravenous COMPARISON: 05/25/2025 FINDINGS: CEREBRUM: No hemorrhage, edema, or mass effect. No abnormal enhancement. WHITE MATTER: Normal. POSTERIOR FOSSA: Brainstem and cerebellum appear unremarkable. No abnormal enhancement. DIFFUSION IMAGING: No recent infarction. EXTRAAXIAL SPACES: No hemorrhage. No mass or abnormal enhancement. BRAIN VOLUME: Within normal limits for age. PITUITARY: Unremarkable. VASCULATURE: No flow disturbance identified. ORBITS: No masses. Globes normal. PARANASAL SINUSES AND MASTOIDS: Well-aerated with no fluid levels. No mucosa thickening. OTHER: No other significant finding. IMPRESSION: Normal MRI of the brain without and with intravenous gadolinium contrast. THIS IS AN ELECTRONICALLY VERIFIED FINAL REPORT 05/25/2025 5:04 PM - Electronically signed by Norris Gannon M.D. KH: FLAVIO Report ID: [id number] Reading Location: [id number] Procedure Note Norris Gannon MD - 05/25/2025 EXAM DESCRIPTION: MRI BRAIN HYPERACUTE STROKE W WO CONTRAST REASON FOR STUDY: 44-year-old woman past medical history of migraines sensorineural hearingloss of right ear anxiety who presents to the ED for complaints of acute onset left-sided headache along with right eye visual blurriness and somenumbness in her left arm. Patient states she was at work when she suddenly hadthis pain in her head it started in her left parietal and wrapped around to her right side she feels like it is a gripping sensation. This is not typicalof her migraines which is more of a stabbing sensation and unilateral. The neurological deficits soon followed simultaneously as the headache began.She describes the pain as a 6/10 in severity. And she came here to the ED immediately for evaluation. Her last known well was noon. Her NIH stroke scale was 3/10 her deficits are visual lopez somewhat compromisespecifically in the right eye and right lower area she has some sensory difference inher left arm compared to her right arm and she has a bit of a lisp which we considered to be mild dysarthria on when she was pronouncing words. TECHNIQUE: Multiplanar imaging includes noncontrast T1, T2, FLAIR,diffusion with ADC map and post contrast T1 sequences. Additional sequence(s)sensitive to blood products. Images stored on PACS. CONTRAST TYPE/DOSE: 18mL of GADOTERATE MEGLUMINE 0.5 MMOL/ML INTRAVENOUS SOLUTION (SO) injected via intravenous COMPARISON: 05/25/2025 FINDINGS: CEREBRUM: No hemorrhage, edema, or mass effect. No abnormal enhancement. WHITE MATTER: Normal. POSTERIOR FOSSA: Brainstem and cerebellum appear unremarkable. Noabnormal enhancement. DIFFUSION IMAGING: No recent infarction. EXTRAAXIAL SPACES: No hemorrhage. No mass or abnormal enhancement. BRAIN VOLUME: Within normal limits for age. PITUITARY: Unremarkable. VASCULATURE: No flow disturbance identified. ORBITS: No masses. Globes normal. PARANASAL SINUSES AND MASTOIDS: Well-aerated with no fluid levels. Nomucosa thickening. OTHER: No other significant finding. IMPRESSION: Normal MRI of the brain without and with intravenousgadolinium contrast. THIS IS AN ELECTRONICALLY VERIFIED FINAL REPORT 05/25/2025 5:04 PM - Electronically signed by Norris Gannon M.D. KH: FLAVIO Report ID: [id number] Reading Location: [id number] Nicola Baez MD IMG MRI PROCEDURES Final Resu lt * (ABNORMAL) POCT creatinine for contrast evaluation (05/25/2025 4:12 PM CDT) Creatinine POC 1.70(H) 0.60 - 1.10 mg/dL Comment:Testing performed by : [address] [address] Blood 05/25/2025 4:12 PM CDT 05/25/2025 4:12 PM CDT Nicola Baez MD POINT OF CARE TEST ORDERABLES Final Result [facility] [facility] Department [place] [address] * Urinalysis reflex to microscopic and culture Urine (05/25/2025 4:11 PM CDT) Color, ur Yellow Yellow Comment:Testing performed by : [address] [address] Clarity, ur Clear Clear SUSAN Comment:Testing performed by : [address] [address] Specific gravity, ur 1.009 1.003 - 1.030 SUSAN Comment:Testing performed by : [address] [address] pH, urine 6.5 SUSAN Comment: Interpretive Data U rine pH is affected by diet, medications, systemic acid-base disturbances, and renal tubular function. pH may affect urinary stone formation. For example, urine pH below 6.0 may help reduce the tendency for calcium phosphate stones and pH greater than 6.0 may reduce the tendency for uric acid stone formation. Source: [employer] Current Interpretive Data was last revised on 2017 Testing performed by: [address] [address] Protein, ur ql Negative Negative SUSAN Comment:Testing performed by : [facility], [address] [place] [address], [place]., [address] Glucose, ur ql Negative Negative SUSAN Comment:Testing performed by : [address], [place]., [address] Ketones, ur Negative Negative SUSAN Comment:Testing performed by : [address], [place]., [address] Bilirubin, ur Negative Negative SUSAN Comment:Testing performed by : [address], [place]., [address] Blood, ur Negative Negative SUSAN Comment:Testing performed by : [address], [place]., [address] Urobilinogen, ur <2.0 <2.0 mg/dL SUSAN Comment:Testing performed by : [address], [place]., [address] Nitrite, ur Negative Negative SUSAN Comment:Testing performed by : [address], [place]., [address] Leukocyte esterase, ur Negative Negative SUSAN Comment:Testing performed by : [address], [place]., [address] UA reflex comment Reflex conditions for microscopic UA and culture not met. SUSAN Comment:Testing performed by : [facility], [address] [place] [address], [place]., [address] Urine 05/25/2025 4:11 PM CDT 05/25/2025 4:17 PM CDT us Nicola Baez MD LAB MICROBIOLOGY - GENERAL OR DERABLES Final Result SUSAN [address] [facility] Department [place] [address] * (ABNORMAL) eGFR (05/25/2025 4:09 PM CDT) eGFR 41(L) >=60 mL/min/1. 73 m2 Comment: Interpretive Data Reference Interval Normal >/= 90 mL/min/1.73m2 Mildly decreased* 60 - 89 mL/min/1.73m2 Mildly to moderately decreased 45 - 59 mL/min/1.73m2 Moderately to severely decreased 30 - 44 mL/min/1.73m2 Severely decreased 15 - 29 mL/min/1.73m2 Kidney Failure < 15 mL/min/1.73m2 *Relative to young adult level Estimated glomerular filtration rate is determined by the 2020 CKD-EPI equation recommended by the National Kidney Foundation (A Unifying Approach to GFR Estimation: Recommendations of the NKF-ASK Task Force on Reassessing the Inclusion of Race in Diagnosing Kidney Disease, JASN 2020). The CKD-EPI equation should not be used for patients with unstable renal function and has not been validated in children and those over 70. Current interpretive data was last reviewed 2021. Testing performed by: [address] [address] Blood 05/25/2025 4:09 PM CDT 05/25/2025 4:17 PM CDT Nicola Baez MD LAB BLOOD ORDERABLES Final Re sult [facility] [address] [facility] Department [place] [address] * (ABNORMAL) Basic metabolic panel (05/25/2025 4:09 PM CDT) Pathologist [facility] Sodium 138 135 - 145 mmol/L Comment:Testing performed by : [address] [address] Potassium, pl 3.9 3.3 - 4.9 mmol/L SUSAN Comment: Hemolyzed; Potassium value may be falsely elevated by as much as 1.0 mmol/L. Suggest redraw and reanalysis. Testing performed by: [address] [address] Chloride 101 97 - 110 mmol/L SUSAN Comment:Testing performed by : [address] [address] CO2 28 22 - 32 mmol/L SUSAN Comment:Testing performed by : [address] [address] Anion gap 9 2 - 15 mmol/L SUSAN Comment:Testing performed by : [address] [address] BUN 15 6 - 25 mg/dL SUSAN Comment:Testing performed by : [address] [address] Creatinine 1.60(H) 0.60 - 1.10 mg/dL SUSAN Comment:Testing performed by : [address] [address] Glucose 97 70 - 199 mg/dL SUSAN Comment: Interpretive Data Fasting glucose >/= 126 mg/dl is diagnostic for diabetes. Fasting is defined as no caloric intake for at least 8 hours. Fasting glucose between 100 mg/dl to 125 mg/dl is diagnostic of prediabetes. In a patient with classic symptoms of hyperglycemia or hyperglycemic crisis, a random glucose >/= 200 mg/dl is diagnostic for diabetes. In the absence of unequivocal hyperglycemia, results should be confirmed by repeat testing. The classification and Diagnosis of Diabetes Diabetes Care 202; 46: S19-S40. Current interpretive data was last revised 2022. Testing performed by: [address] [address] Calcium 9.0 8.5 - 10.3 mg/dL SUSAN Comment:Testing performed by : [address] [address] Blood 05/25/2025 4:09 PM CDT 05/25/2025 4:17 PM CDT us Nicola Baez MD LAB BLOOD ORDERABLES Final Re sult [facility] [address] [facility] Department [place] [address] * POCT hCG, urine (05/25/2025 4:05 PM CDT) HCG, ur, POC Negative Negative Lot Number [id number] QC Backgroud Clear Acceptable QC Control Line Acceptable Urine 05/25/2025 4:05 PM CDT Nicola Baez MD POINT OF CARE TEST ORDERABLES Final Result * ECG 12 lead (05/25/2025 3:33 PM CDT) Ventricular Rate EKG/Min 65 BPM [facility] Atrial Rate 65 BPM [facility] LA-Interval (MSEC) 116 ms [facility] QRS-Interval (MSEC) 90 ms [facility] QT-Interval (MSEC) 432 ms [facility] QTc 449 ms [facility] P [place] 34 degrees [facility] R [place] 57 degrees [facility] T [place] 27 degrees [facility] Diagnosis Normal sinus rhythm Possible Left atrial enlargement Borderline ECG Confirmed by MAGDA CORNEJO M.D. ([id number]) on 05/26/2025 9:55:06 PM [facility] 05/25/2025 3:33 PM CDT 05/26/2025 9:55 PM CDT Nicola Baez MD ECG ORDERABLES Final Result [facility] * CT Stroke Head WO Contrast (05/25/2025 3:13 PM CDT) Anatomical Region Laterality Modality Head N/A Computed Tomogra phy 05/25/2025 3:18 PM CDT Narrative 05/25/2025 3:23 PM CDT EXAM DESCRIPTION: CT STROKE HEAD WO CONTRAST REASON FOR STUDY: Stroke, follow up, Stroke Came to ED for c/o dizziness, blurred vision to right eye, and headache that started at 1200. TECHNIQUE: Axial images acquired through the brain without intravenous contrast. Images stored on PACS. Automated exposure control was used as a dose optimization technique for this examination. COMPARISON: Brain MRI 09/02/2022 FINDINGS: No acute intracranial hemorrhage. No evidence of a large vascular territory acute infarction or CT evidence of vasogenic edema. No midline shift or mass effect. The ventricles are normal in size. Brain volume appears within normal limits for patient age. White matter attenuation appears within normal limits. The calvarium is normal without acute fracture. The orbits are unremarkable. The paranasal sinuses are well aerated. The mastoid air cells are well aerated. IMPRESSION: No acute intracranial hemorrhage, mass effect or midline shift. The results were communicated to the ordering provider by the [facility] radiology lab support tech at time of this dictation. THIS IS AN ELECTRONICALLY VERIFIED FINAL REPORT 05/25/2025 3:23 PM - Electronically signed by Checo Dee M.D. MM: MM Report ID: [id number] Reading Location: [id number] Procedure Note Checo Dee MD - 05/25/2025 EXAM DESCRIPTION: CT STROKE HEAD WO CONTRAST REASON FOR STUDY: Stroke, follow up, Stroke Came to ED for c/o dizziness, blurred vision to right eye, and headachethat started at 1200. TECHNIQUE: Axial images acquired through the brain without intravenous contrast. Images stored on PACS. Automated exposure control was used asa dose optimization technique for this examination. COMPARISON: Brain MRI 09/02/2022 FINDINGS: No acute intracranial hemorrhage. No evidence of a large vascularterritory acute infarction or CT evidence of vasogenic edema. No midline shift ormass effect. The ventricles are normal in size. Brain volume appears within normallimits for patient age. White matter attenuation appears within normal limits. The calvarium is normal without acute fracture. The orbits areunremarkable. The paranasal sinuses are well aerated. The mastoid air cells are well aerated. IMPRESSION: No acute intracranial hemorrhage, mass effect or midlineshift. The results were communicated to the ordering provider by the [facility] lab support tech at time of this dictation. THIS IS AN ELECTRONICALLY VERIFIED FINAL REPORT 05/25/2025 3:23 PM - Electronically signed by Checo Dee M.D. MM: MM Report ID: [id number] Reading Location: [id number] us Nicola Baez MD IM CT PROCEDURES Final Resul t * aPTT (05/25/2025 3:10 PM CDT) aPTT 24 22 - 37 sec Comment: Interpretive data aPTT test has not been evaluated for monitoring heparin therapy. The anti-Xa is the preferred test. Current interpretive data was last revised on 2019. Testing performed by: [address] [address] Blood Venous blood specimen / Unknown 05/25/2025 3:10 PM CDT 05/25/2025 3:14 PM CDT Narrative SUSAN - 05/25/2025 3:26 PM CDT Potential stroke patient. Nicola Baez MD LAB BLOOD ORDERABLES Final Re sult Performing Organization Address [facility] Co de Phone Number [address] [place] [address] * Protime-INR (05/25/2025 3:10 PM CDT) PT 12.9 12.0 - 14.6 sec Comment:Testing performed by : [address] [address] INR 1.0 0.9 - 1.2 SUSAN Comment: Ref Range High Interpretive data Oral anticoagulant therapeutic ranges: Venous thromboembolism prophylaxis or treatment: 2.0-3.0 CARDIOLOGY Standard range: 2.0-3.0 High-intensity range: 2.5-3.5 Refer to indication-specific guidelines for appropriate target ranges for prosthetic heart valve replacement. Current interpretive data was last revised on 2019. Testing performed by: [address] [address] Blood 05/25/2025 3:10 PM CDT 05/25/2025 3:14 PM CDT Nicola Baez MD LAB BLOOD ORDERABLES Final Re sult Performing Organization Address City/[facility]/ZIP Co de Phone Number [address] [employer] [place], [place] [id number] * Troponin T high-sensitivity series (baseline, 2hr, 4hr, 6hr) (05/25/2025 3:05 PM CDT) Trop T hs 8 <=14 ng/L Comment: Interpretive Data For further hscTnT resources including the diagnostic algorithm and an aid in interpretation, copy and paste this link: https://nrl.testcatalog.org/show/hsTrop Current Interpretive Data last revised 2020. Testing performed by: [facility], [address] [place] [address]., [address] Blood 05/25/2025 3:05 PM CDT 05/25/2025 3:14 PM CDT Nicola Baez MD LAB BLOOD ORDERABLES Edited R esult - Final SUSAN [facility] Department [place] [address] * (ABNORMAL) eGFR (05/25/2025 3:05 PM CDT) eGFR 38(L) >=60 mL/min/1. 73 m2 Comment: Interpretive Data Reference Interval Normal >/= 90 mL/min/1.73m2 Mildly decreased* 60 - 89 mL/min/1.73m2 Mildly to moderately decreased 45 - 59 mL/min/1.73m2 Moderately to severely decreased 30 - 44 mL/min/1.73m2 Severely decreased 15 - 29 mL/min/1.73m2 Kidney Failure < 15 mL/min/1.73m2 *Relative to young adult level Estimated glomerular filtration rate is determined by the 2020 CKD-EPI equation recommended by the National Kidney Foundation (A Unifying Approach to GFR Estimation: Recommendations of the NKF-ASK Task Force on Reassessing the Inclusion of Race in Diagnosing Kidney Disease, JASN 2020). The CKD-EPI equation should not be used for patients with unstable renal function and has not been validated in children and those over 70. Current interpretive data was last reviewed 2021. Testing performed by: [facility], [address] [place] [address]., [address] Blood 05/25/2025 3:05 PM CDT 05/25/2025 3:14 PM CDT us Yovany Mckay MD LAB BLOOD ORDERABLES Final Result SUSAN [address] [facility] Department [place] [address] * Differential, auto (05/25/2025 3:05 PM CDT) Neutrophil abs 6.35 1.50 - 6.50 K/cumm Comment:Testing performed by : [address] [address] Imm gran abs 0.02 0.00 - 0.10 K/cumm SUSAN Comment:Testing performed by : [address] [address] Lymphocyte abs 2.45 0.80 - 3.30 K/cumm SUSAN Comment:Testing performed by : [address] [address] Monocyte abs 0.54 0.20 - 0.80 K/cumm SUSAN Comment:Testing performed by : [address] [address] Eosinophil abs 0.14 0.00 - 0.50 K/cumm SUSAN Comment:Testing performed by : [address] [address] Basophil abs 0.04 0.00 - 0.10 K/cumm SUSAN Comment:Testing performed by : [address] [address] Neutrophil pct 66.5 % SUSAN Comment: Interpretive Data Percent cell count reference ranges are not reported, since discordance with absolute values may lead to misinterpretation of CBC data. Current Interpretive Data was last revised on 2018. Testing performed by: [address] [address] Imm gran pct 0.2 % SUSAN Comment: Interpretive Data Percent cell count reference ranges are not reported, since discordance with absolute values may lead to misinterpretation of CBC data. Current Interpretive Data was last revised on 2018. Testing performed by: [address] [address] Lymphocyte pct 25.7 % [facility] Comment: Interpretive Data Percent cell count reference ranges are not reported, since discordance with absolute values may lead to misinterpretation of CBC data. Current Interpretive Data was last revised on 2018. Testing performed by: [address] [address] Monocyte pct 5.7 % [facility] Comment: Interpretive Data Percent cell count reference ranges are not reported, since discordance with absolute values may lead to misinterpretation of CBC data. Current Interpretive Data was last revised on 2018. Testing performed by: [address] [address] Eosinophil pct 1.5 % [facility] Comment: Interpretive Data Percent cell count reference ranges are not reported, since discordance with absolute values may lead to misinterpretation of CBC data. Current Interpretive Data was last revised on 2018. Testing performed by: [address] [address] Basophil pct 0.4 % [facility] Comment: Interpretive Data Percent cell count reference ranges are not reported, since discordance with absolute values may lead to misinterpretation of CBC data. Current Interpretive Data was last revised on 2018. Testing performed by: [address] [address] Blood 05/25/2025 3:05 PM CDT 05/25/2025 3:14 PM CDT us Yovany Mckay MD LAB BLOOD ORDERABLES Final Result SUSAN SWAN [address] [facility] Department [place] [address] * CBC with auto differential (05/25/2025 3:05 PM CDT) WBC 9.54 3.80 - 9.90 K/cumm Comment:Testing performed by : [address] [address] Hgb 14.0 11.9 - 15.5 g/dL SUSAN Comment:Testing performed by : [address] [address] Hct 41.1 35.6 - 45.5 % SUSAN Comment:Testing performed by : [address] [address] Plt 268 150 - 400 K/cumm SUSAN Comment:Testing performed by : [address] [address] MPV 11.4 9.1 - 12.3 fL SUSAN Comment:Testing performed by : [address], [address] RBC 4.63 3.90 - 5.20 M/cumm SUSAN Comment:Testing performed by : [address], [address] MCV 88.8 81.3 - 96.4 fL SUSAN Comment:Testing performed by : [address] [address] MCH 30.2 27.1 - 33.3 pg SUSAN Comment:Testing performed by : [address] [address] MCHC 34.1 32.3 - 35.7 g/dL SUSAN Comment:Testing performed by : [address], [address] RDW CV 12.8 11.1 - 14.9 % SUSAN Comment:Testing performed by : [address], [address] RDW SD 41.5 35.7 - 48.1 fL SUSAN Comment:Testing performed by : [address] [address] NRBC abs 0.00 0.00 - 0.01 K/cumm SUSAN Comment:Testing performed by : [address] [address] Blood Venous blood specimen / Unknown 05/25/2025 3:05 PM CDT 05/25/2025 3:14 PM CDT Narrative SUSAN SWAN - 05/25/2025 3:17 PM CDT Potential Stroke Patient us Nicola Baez MD LAB BLOOD ORDERABLES Final Re sult [facility]AN [facility] [address] [facility] Department [place] [address] * (ABNORMAL) Comprehensive metabolic panel (05/25/2025 3:05 PM CDT) Sodium 138 135 - 145 mmol/L Comment:Testing performed by : [address] [address] Potassium, pl 3.7 3.3 - 4.9 mmol/L SUSAN Comment: Hemolyzed; Potassium value may be falsely elevated by as much as 1.0 mmol/L. Suggest redraw and reanalysis. Testing performed by: [address] [address] Chloride 100 97 - 110 mmol/L SUSAN Comment:Testing performed by : [address] [address] CO2 27 22 - 32 mmol/L SUSAN Comment:Testing performed by : [address] [address] Anion gap 11 2 - 15 mmol/L SUSAN Comment:Testing performed by : [address] [address] BUN 15 6 - 25 mg/dL SUSAN Comment:Testing performed by : [address] [address] Creatinine 1.70(H) 0.60 - 1.10 mg/dL SUSAN Comment:Testing performed by : [address] [address] Glucose 101 70 - 199 mg/dL SUSAN Comment: Interpretive Data Fasting glucose >/= 126 mg/dl is diagnostic for diabetes. Fasting is defined as no caloric intake for at least 8 hours. Fasting glucose between 100 mg/dl to 125 mg/dl is diagnostic of prediabetes. In a patient with classic symptoms of hyperglycemia or hyperglycemic crisis, a random glucose >/= 200 mg/dl is diagnostic for diabetes. In the absence of unequivocal hyperglycemia, results should be confirmed by repeat testing. The classification and Diagnosis of Diabetes Diabetes Care 202; 46: S19-S40. Current interpretive data was last revised 2022. Testing performed by: [address] [address] Calcium 9.3 8.5 - 10.3 mg/dL SUSAN Comment:Testing performed by : [address] [address] Bilirubin, total 0.2 0.1 - 1.2 mg/dL SUSAN Comment:Testing performed by : [address] [address] Protein, pl 7.5 6.5 - 8.5 g/dL SUSAN Comment:Testing performed by : [address] [address] Albumin 4.2 3.5 - 5.0 g/dL SUSAN Comment:Testing performed by : [address] [address] Alk phos 64 40 - 130 Units/L SUSAN Comment:Testing performed by : [address] [address] ALT 18 7 - 45 Units/L SUSAN Comment:Testing performed by : [address] [address] AST 23 10 - 45 Units/L SUSAN Comment: Hemolyzed; result may be falsely elevated Testing performed by: [address] [address] Blood Venous blood specimen / Unknown 05/25/2025 3:05 PM CDT 05/25/2025 3:14 PM CDT Narrative SUSAN - 05/25/2025 4:01 PM CDT Potential Stroke Patient us Nicola Baez MD LAB BLOOD ORDERABLES Final Re sult S[facility]AN [address] [facility] Department [place] [address] * POCT glucose (05/25/2025 3:03 PM CDT) [facility] Signature Glucose, POC 104 70 - 199 mg/dL Comment:Testing performed by : [facility], [address] [place] [address]., [address] Glucose comment 1 Use This Result SUSAN SWAN Comment:Testing performed by : [facility], [address] [place] [address]., [address] Blood 05/25/2025 3:03 PM CDT 05/25/2025 3:03 PM CDT us Notinfile Unknown LAB POCT ORDERABLES - DEVICE F inal Result SUSAN SWAN [address] [facility] Department [place] [address] from Last 3 Months Insurance [email or web address] OPEN ACCESS [email or web address] OPEN ACCESS Advance Directives For more information, please contact: [phone] * Full Code (Latest Code Status on File) Date Activated Date Inactivated Comments 05/25/2025 5:44 PM 05/26/2025 2:57 PM Care Teams Sieve Grader Tender Relationship Specialty Start Date End Date Sierra Martin NP PCP - General Nurse Practitioner 05/22/22
--- OUTSIDE RECORDS SUMMARY | 2025-08-13 01:45 | XMS_ITS | Data Portability ---
Author Organization [facility] Address [address] [place] [address] [place] [address] Care Team Providers Care Sustainable Agriculture Specialist Name Role Phone SHADY NEUMANN Primary Care Provider Assessment Encounter Date Assessment Date Assessment LastModified by Organization Details LastModified Time 03/14/2025 03/14/2025 left before being seen [email or web address] Not available 03/21/2025 14:34:21 03/21/2025 03/21/2025 Annual gynecological exam performed. Patient will come back in a year unless there are new symptoms. [email or web address] Not available 03/21/2025 08:38:31 Plan of Treatment Reminders Order Date Submit Date Provider Last Modified By Organization Details Last Modified Time Details Appointments SURG Hysterosc opy 2024 09:00A Lewis MILLER MD Not available Not available Not available SURG POST OP 2024 09:30A Lewis MILLER MD Not available Not available Not available Lab test, urine 2024 [address], [address], [place], [address], 08/01/2025 10:31:58 surgical pathology study 2024 025 [facility] (Lab), [address], [place], [address], 08/02/2025 21:13:20 Referral None recorded. Procedures None recorded. Surgeries hysterosc opy, with endometri al ablation (SURG) 2024 025 [email or web address] [facility], [address], [place], [address], 07/04/2025 14:47:38 tubal ligation (SURG) 2024 025 [email or web address] [facility], [address], [place], [address], 07/04/2025 14:49:38 Imaging None recorded. Medication Orders NuvaRing 0.12 mg-0.015 mg/24 hr vaginal 2024 025 [facility] [address] [facility], [address], [place], [address], 06/13/2025 12:06:49 Patient TargetsNo targets recorded. Patient InstructionsNo instructions recorded. Reason for Referral None Reported. Results Created Date Observation Date Name Description Value Unit Range Abnormal Flag Note LastModifiedBy Organization Detail LastModifiedTime 08/01/2008/01/2025 SURGI ROBERT PATHO LOGY surgical pathology SEE RESULT S BELOW CASE REPOR T: Surgi robert Patho logy Repor t Case: [id number] Autho rene perez Provi sushant: Bj Penn MD Colle cted: 08/01 1036 Order ing Locat ion: [place] Patho logy Recei jayden: 08/02 0423 Patho logis t: Sanjay Bustillos MD Speci men: Maciel miller EMB ----- ----- ----- ----- ----- ----- ----- ----- ----- ----- ----- ----- ----- ----- ----- ----- ----- ---- FINAL DIAGN OSIS: Maciel etalejandro miller, biops y: -Secr lindsey miller. -No evide nce of myra plasi zev or wojciech peterson . Elect jaqueline france by Sanjay Bustillos MD on 2024 at 2008 CDT ----- ----- ----- ----- ----- ----- ----- ----- ----- ----- ----- ----- ----- ----- ----- ----- ----- ---- CLINI ROBERT INFOR MATIO N: AUB MICRO SCOPI C DESCR IPTIO N: A micro scopi c exami natio n was perfo rmed. A porti on of the testi ng proce ss was perfo rmed at [facility] rn Medic ine Labor atori es site NMDP1 12. Digit al imagi ng was used in the diagn ostic asses sment of this case. GROSS DESCR IPTIO N: A. Endom etriu m. The speci men is recei jayden in jeannette pope ed with the patie nt's name and demog raphi cs only. It consi sts of a 2.5 x 2.0 x 0.1 [address] of red-t an tissu e and mucus . The speci men is submi tted entir emerson in 1 casse tte. Gross ed by Darrian bui Not Available [facility] (Lab) [address], [place], [address], 08/02/2025 21:13:20 08/01/20 25 08/01/2025 pregn brinda test, urine HCG negati ve Not Available [place] [address], [place], [address], 08/01/2025 10:22:05 Result Notes None recorded. Procedures Surgical History Date Name Laterality Status Provider Name and Address Organization Details Recorded Time 08/01/20 Endometrial Biopsy completed KRISS MILLER MD [address], [place], [address], [facility] 08/01/2025 14:42:45 01/29/20 25 Date of Last Mammogram completed [facility] 03/21/2025 08:52:49 03/08/20 24 Date of Last Pap Smear completed [facility] 03/21/2025 08:45:06 11/08/19 22 Breast Biopsy completed [facility] 03/08/2024 10:12:55 11/08/19 03 cone biopsy completed [facility] 03/08/2024 10:12:32 11/08/19 03 Colposcopy completed [facility] 03/08/2024 10:13:09 11/08/18 98 reconstruction of anterior cruciate ligament of knee joint completed [facility] 03/08/2024 10:13:46 11/08/18 92 Orthopedic Surgery completed [facility] 03/08/2024 10:13:30 Imaging Results None recorded. Procedure Notes None recorded. Medical Equipment None Reported. Allergies No known drug allergies Medications Name Sig Start Date Stop Date Status Note LastModified by Organization Details LastModified Time amoxicillin 500 mg capsule TAKE 1 CAPSULE BY MOUTH 3 TIMES A DAY 03/08 completed Not Available Not Available Not Available prednisone 10 mg tablet START 6 TABLETS BY MOUTH TODAY AND DECREASE BY ONE TABLET EACH DAY UNTIL COMPLETE. 06/13 completed Not Available Not Available Not Available trazodone 50 mg tablet TAKE 1 TABLET BY MOUTH NIGHTLY AT BEDTIME active Not Available Not Available No t Available ibuprofen 800 mg tablet TAKE 1 TABLET BY MOUTH EVERY 6 HOURS NEEDED FOR PAIN 03/08 completed Not Available Not Available Not Available benzonatate 200 mg capsule TAKE 1 CAPSULE BY MOUTH 3 TIMES A DAY NEEDED FOR COUGH 03/08 completed Not Available Not Available Not Available hydrocodone 5 mg-acetamin ophen 325 mg tablet TAKE 1 TABLET BY MOUTH 2 TIMES DAILY NEEDED FOR CHRONIC PAIN 03/21 completed Not Available Not Available Not Available acetaminoph en 300 mg-codeine 30 mg tablet TAKE 1 TABLET BY MOUTH EVERY 6 HOURS NEEDED FOR PAIN 03/21 completed Not Available Not Available Not Available triamterene 37.5 mg-hydrochl orothiazide 25 mg capsule TAKE 1 CAPSULE BY MOUTH DAILY 06/13 completed Not Available Not Available Not Available nicotine (polacrilex ) 4 mg gum CHEW 1 PIECE (4 MG TOTAL) NEEDED FOR SMOKING CESSATION 06/13 completed Not Available Not Available Not Available meclizine 25 mg tablet TAKE 1 TABLET BY MOUTH THREE TIMES A DAY NEEDED 07/04 completed Not Available Not Available Not Available cephalexin 500 mg capsule TAKE 1 CAPSULE BY MOUTH TWICE A DAY FOR 10 DAYS 03/21 completed Not Available Not Available Not Available buspirone 10 mg tablet TAKE 1 TABLET BY MOUTH TWICE A DAY active Not Available Not Available No t Available nicotine 21 mg/[address]mal patch PLACE 1 PATCH ON THE SKIN DAILY FOR 24 HOURS 06/13 completed Not Available Not Available Not Available fluticasone propionate 50 mcg/actuati on nasal spray,suspe nsion ADMINISTE R 2 SPRAYS INTO EACH NOSTRIL DAILY FOR 14 DAYS 03/08 completed Not Available Not Available Not Available naproxen 500 mg tablet TAKE 1 TABLET (500 MG) BY MOUTH TWICE A DAY NEEDED FOR PAIN 03/21 completed Not Available Not Available Not Available aripiprazol e 10 mg tablet TAKE 1 TABLET BY MOUTH EVERY DAY active Not Available Not Available No t Available chlorhexidi ne gluconate 0.12 % mouthwash SWISH AND SPIT 15 ML BY MOUTH TWICE A DAY 03/08 completed Not Available Not Available Not Available buspirone 03/08 completed Not Available Not Available Not Available 12 Hour Decongestan t ER 120 mg tablet,exte nded release TAKE 1 TABLETS BY MOUTH EVERY 12 HOURS NEEDED FOR NASAL CONGESTIO N 03/08 completed Not Available Not Available Not Available EluRyng 0.12 mg-0.015 mg/24 hr vaginal ring active Not Available Not Available Not Available Vitals Date Recorded Body height Body mass index (BMI) Body weight Systolic And Diastolic Provider Name and Address Organization Details Last Updated DateTime 03/21/2025 157.48 cm 33.5 kg/m2 19329.84 g 108/68 mm[Hg] [facility] 03/21/2025 10:43:28 Date Recorded Body height Body mass index (BMI) Body weight Systolic And Diastolic Provider Name and Address Organization Details Last Updated DateTime 06/13/2025 157.48 cm 34 kg/m2 53914.46 g 120/75 mm[Hg] [facility] 06/13/2025 12:02:29 Date Recorded Body height Body mass index (BMI) Body weight Systolic And Diastolic Provider Name and Address Organization Details Last Updated DateTime 07/04/2025 157.48 cm 33.8 kg/m2 61621.59 g 123/76 mm[Hg] Olga Aburto [facility] 07/04/2025 10:38:05 Date Recorded Body height Body mass index (BMI) Body weight Systolic And Diastolic Provider Name and Address Organization Details Last Updated DateTime 08/01/2025 157.48 cm 34.4 kg/m2 54825.37 g 120/77 mm[Hg] Maria Del Carmen Lindsey [facility] 08/01/2025 10:01:17 Social History Question Answer Notes LastModified by Organizat ion Details LastModified Time Tobacco Smoking Status Former Smoker Olga Aburto [facility] 03/08/2024 10:11:17 Do You Have An Advance Directive? No [email or web address] Information n ot available 03/21/2025 How Many Years Have You Consumed Alcohol? 30 Information not available 03/08/2024 Are You Blind Or Do You Have Difficulty Seeing? No Information n ot available 03/08/2024 What Is Your Level Of Caffeine Consumption? Moderate Information not available 03/08/2024 How Much Tobacco Do You Chew? None Information not available 03/08/2024 In The 14 Days Before Symptom Onset, Have You Had Close Contact With A Laboratory-confirm ed COVID-19 While That Case Was Ill? No Information n ot available 03/08/2024 In The 14 Days Before Symptom Onset, Have You Had Close Contact With A Person Who Is Under Investigation For COVID-19 While That Person Was Ill? No Information not available 03/08/2024 Have You Been To An Area Known To Be High Risk For COVID-19? No Information not available 03/08/2024 Are You Deaf Or Do You Have Serious Difficulty Hearing? Yes Information not available 03/08/2024 What Type Of Diet Are You Following? REGULAR Information n ot available 03/08/2024 What Is The Highest Grade Or Level Of School You Have Completed Or The Highest Degree You Have Received? [id number] Information not available 03/08/2024 Are There Any Guns Present In Your Home? Yes Information not available 03/08/2024 Do You Use Protection During Sex? No Information not available 03/08/2024 Do You Use Your Seat Belt Or Car Seat Routinely? Yes Information not available 03/08/2024 Are You Sexually Active? Yes Information not available 03/08/2024 Do You Have Smoke And Carbon Monoxide Detectors In Your Home? Yes Information not available 03/08/2024 At What Age Did You Start Smoking Tobacco? 13 Information not available 03/08/2024 How Much Tobacco Do You Smoke? No [email or web address] Information not available 03/21/2025 Do You Use Sunscreen Routinely? No Information not available 03/08/2024 How Many Years Have You Smoked Tobacco? 32 Information not available 03/08/2024 Have You Used IV Drugs? No Information not available 03/08/2024 Do You Have Difficulty Walking Or Climbing Stairs? No Information not available 03/08/2024 Sex: Female Functional Status Question Answer Note LastModified by Organizat ion Details LastModified Time Do you use any illicit or recreational drugs? Yes [email or web address] Information not available 03/21/2025 What is your level of alcohol consumption? Moderate Information not available 03/08/2024 Are you able to walk independently without assistance or assistive devices? YESWOREST Information not available 03/08/2024 Are you able to care for yourself independently? Yes Information not available 03/08/2024 What is your occupation? [employer] Information not available 03/08/2024 Do you have difficulty dressing, bathing, grooming, or toileting? No Information not available 03/08/2024 What is your exercise level? None [email or web address] Information not available 03/21/2025 Mental Status Question Answer Note LastModified by Organization D etails LastModified Time Do you feel stressed (tense, restless, nervous, or anxious, or unable to sleep at night)? [id number] Information not available 03/08/2024 Family History Relationship Description Onset Age of this Age Resolved Age Notes LastModified by Organization Details LastModified Time Paternal Grandmother Diabetes mellitus Not available 2023 10:04:44 Brother Diabetes mellitus Not available 2023 10:04:44 Father Diabetes mellitus Not available 2023 10:04:44 Medical History Condition Response Other N Blood Transfusion N Dermatologic Disorders N Gestational Diabetes N Anxiety Disorder N Autoimmune disease N Arthritis N Polyps N Infertility N Acid Reflux (GERD) N Cancer N Varicosities N Stroke Y Neurologic/Epilepsy N Fibromyalgia N Headaches N Kidney Disease N Heart Problems N Kidney or Bladder Problems N Eating Disorder N Art (IVF or FET) N Hepatitis/Liver Disease N No Past Medical History N Urinary Tract Infection N Asthma N Trauma/Violence N Thrombophilias N Allergies (Food, seasonal, environmental ) N Breast Cancer N Drug/Latex Allergies/Reactions N Lung Disease N Defects or Inherited Disease N Breast Problem Y Hematologic disorders N Anesthesia Complications N History of STI Y Deep Vein Thrombosis N Polycystic ovary syndrome N History of abnormal pap Y Endometriosis N High Cholesterol N Thyroid Problems N GI Problems N Anemia N Psychiatric Illness N Ovarian Cancer N Diabetes N Pulmonary (TB, Asthma) N Eczema N Abuse/Domestic Violence N Depression/ depression Y Heart Disease N Pre-Eclampsia N Hypertension N Osteoporosis N Gynecological History Statement/Question Response Date of Last Mammogram 12/06/2024 Flow Heavy Date of LMP 07/17/2025 N Was last menstrual period normal Y STIs/STDs Y Vaginal Ring Desired Control Method Sterilizati on Abnormal Pap Y On BCP's at Conception? N HPV Vaccine N Colposcopy Duration of Flow (days) 5 Current Control Method None Age at First Child 19 Are cycles usually normal Y Frequency of Cycle (Q days) 28 Sexually Active? Y Menses Monthly Y Age of first menstrual cycle 14 Date of Last Pap Smear 03/08/2024 Sexual Problems? Y LMP Definite N Obstetrics History GPAL:G 5 P 0 0 1 4 Type Value Spontaneous 1 Living 4 Total 5 Past Encounters Encounter ID Performer Location Encounter Start Date Encounter Closed Date Diagnosis/Indication Diagnosis SNOMED-CT Code Diagnosis ICD10 Code Diagnosis IMO Codes Diagnosis Note [id number] Flor Pettit [facility] [address] [address] 03/08/2024 09:54:07 03/08/2024 11:12:15 Gynecologic examination 45736376 Z01.419 Suggested Calcium with Vitamin D 1200-1500m g daily. Patient advised to get an annual flu shot in the fall and she could obtain at [facility] or [facility] clinic. Also to obtain TDap vaccinatio n if you have not had one in the last 10 years. Recommend yearly mammograms . Encouraged monthly self breast exams. Encourage safe sexual practices, to use condoms and limit partners if not already in a monogamous relationsh ip. Engage in daily exercise of low impact aerobic exercise 45-60 minutes 4-5 times weekly. Avoid tobacco and illicit drugs as well as using moderation with alcohol intake less than 1-2 8 oz beverages daily. This lifestyle behavior pattern will lead to less health conditions and longer life span. If BMI greater than 25 weight watchers or dietary consult advised. All questions have been answered. Patient appears to understand informatio n, but if you have any questions please call or respond to this email. Pap/hpv sentSTD Screen declinedGe netic Screen discussedC olon Screen naDexa Screen naRoutine Labs PCPMammo completed with specialist q6mos (non-cance luanne) Contracept ion care management 600587433 Z30.9 Happy on nuvaringWi shes to continue for period regulation RF sent x 1yr [id number] Reuben Bruce MD [place] [address] [address] 03/14/2025 09:54:20 03/21/2025 14:34:28 [id number] Reuben Bruce MD [place] [address] [address] 03/21/2025 10:28:54 03/21/2025 10:59:35 Contraception care management 431490674 Z30.9 Happy with Nuvaring.R isks/benef its reviewed.R efills sent x one year. Well woman health examination 179186173 Z01.419 [id number] Annual gynecologi robert exam performed. Patient will come back in a year unless there are new symptoms. Suggest Calcium with Vitamin D if not eating in diet. Patient advised to get annual flu shot. Recommend yearly physicals and perform monthly breast exams. Genetic testing is available for patients with family history of cancer. Engage in safe sexual practices, use condoms. Encouraged to have daily exercise. Avoid tobacco and illicit drugs, moderation of alcohol. If BMI greater than 25 dietary consult advised. If you have any questions please call or email. mammogram- PCP orders - was seeing breast specialist q6mos (non-cance r) but now can do annual screens colon cancer screening - n/a DEXA scan- n/a Pap smear- UTD (2023 - WN), will repeat in 2026 per ASCCP guidelines laboratory evaluation - PCP STI testing - declined [id number] JERZY HERNANDEZ NP [place] [address] [address] 06/13/2025 11:49:29 06/13/2025 13:33:56 Contraception care management 102296956 Z30.9 [id number] Recent ER visit for suspected TIA.Discus sed progestero ne-only control options to regulate cycles, such as POPs, Mirena IUD, Depo, or Nexplanon. Risks/bene fits/AEs reviewed.D iscussed endometria l ablation and other surgical options.Faustino high interested in MD consult for endometria l ablation. [id number] KRISS MILLER MD [place] [address] [address] 07/04/2025 10:01:33 07/04/2025 14:16:28 Menometrorrhagia [id number] N92.1 [id number] - long hx of menorrhagi a, previously controlled with Nuvaring prior to TIA- estrogen now contraindi cated- does not desire any further medical management attempts- interested in endometria l ablation with bilateral salpingect lisa- discussed risks of surgery, including bleeding, infection, and injury to adjacent structures - discussed need for endometria l sampling prior to ablation to rule out hyperplasi a and malignancy - following EMB, will proceed with hysterosco py, endometria l ablation, and bilateral salpingect lisa [id number] KRISS MILLER MD [place] [address] [address] 08/01/2025 09:50:42 08/01/2025 14:45:54 Abnormal uterine bleeding [id number] 9100 N93.9 [id number] - EMB performed without issue- will follow up on results as available Health Concerns Section Related Observation LastModified by Organization Detai ls LastModified Time None Recorded Concern Status LastModified by Organization Details LastModified Time None Recorded Advance Directives Directive N: Payers Insurance Date Sequence Insurance Name Policy Number Policy Bond Covered Member ID Bond Member ID Guarantor Name 08/10/2025 1 [facility] [id number] Cameron Casiano [id number] Missy Casiano Notes Date Note Type Note Provider Name and Address Organization Details Recorded Time 5 text/html Annual GYNReported by Patient JERZY HERNANDEZ NP [address], [place], [address], [facility] 03/21/2025 14:34:25 5 text/html Annual GYNReported by PatientHistoryFor history, patient reportsno gynecologic complaints.Genitourina ry symptomsFor menstrual cycle, patient reportsnormal menses. For urinary symptoms, patient reportsno hematuriaandno incontinence. For vulva, patient reportsno genital lesion. For vagina, patient reportsnormal vaginal discharge.Breast symptomsFor breast, patient reportsno breast pain,no breast lump, andno nipple discharge.Contraceptio nFor current contraception, patient reportssatisfied with current contraceptionandnuvari ng.Endocrine symptomsFor sexual complaints, patient reportsno sexual complaints,no pain during intercourse, andnormal libido. For menopausal symptoms, patient reportsno menopausal symptomsandnormal vaginal lubrication.Psychologi robert symptomsFor psychological symptoms, patient reportsno depression,no anxiety, andno pmdd.Preventative measuresFor preventive measures, patient reportsencourage self breast examination,encourage regular exercise,encourage no tobacco use, andencourage regular mammograms starting age 40. Patient presents for annual well woman exam. Patient denies concerns today. JERZY HERNANDEZ NP [address], [place], [address], , [facility] 03/21/2025 10:59:10 5 text/html 44 y/o female here to discuss alternative control options as she recently had ER visit 05/25 for stroke-like symptoms of blurred vision, arm pain, and slurred speech. Patient states that she likely had a TIA and was advised to stop estrogen-containing BC. Patient states that she stopped Nuvaring. Patient states that her has had a vasectomy, but she uses BC for cycle regulation as she struggled with menorrhagia in the past. JERZY HERNANDEZ NP [address], [place], [address], , [facility] 06/13/2025 13:17:28 5 text/html ROS as noted in the HPI Patient presents to discuss options for menorrhagia. She was previously on Nuvaring however recently had a TIA and was told she can no longer take estrogen. Her periods are irregular off of hormones. She is using partner vasectomy for contraception however is interested in a tubal ligation. She would like to discuss endometrial ablation for period control. KRISS MILLER MD [address], [place], [address], , [facility] 07/04/2025 14:11:25 5 text/html Patient presents for endometrial biopsy preop prior to endometrial ablation for AUB. KRISS MILLER MD [address], [place], [address], , [facility] 08/01/2025 14:43:43 OBGyn Episode Ob Episode Information Episode Created Date Number of Fetuses Patient Bloodtype Patient rh Status Prepregnancy Weight lbs Domestic Partner Domestic Partner Phone Father Name Metal Roofing Mechanic Status 03/08/20 24 1 CLOSED Fetus Data First Name Last Name Admitted to NICU Weight (g) Sex Living Outcome Pediatric Complications Fetus ID Race Codes Race Delivery Type F Full Term [id number] Vaginal Delivery Eleno Calculation Initial Eleno Date Initial Exam Date Initial Exam Provider Initial Ultrasound Date Last Menstrual Period Date Ultra Sound Weeks Gestation 0 Eighteen To Twenty Week Eleno Update Ultra Sound Date Fundal Height At Umbil Quickening Date Ultra Sound Latest Weeks Gestation Final Eleno Confirmed By Final Eleno Confirmed Date Final Eleno Date Ultra Sound Latest Days Gestation 0 0 Menstrual History Last Menstrual Date Menses Monthly On Bcp Conception Prior Menses Frequency Hcg Plus Date Menarche Onset Age Delivery Information Delivery Date Delivery Type Labor Anesthesia Weeks Gestation Incision Type Labor Labor Length Hrs Delivered By Post Complications Tubal Sterilization Discharge Date Comments 0 40 Discharge Information Feeding Method Contraceptive Method Maternal HG B and HCT Levels Ob Episode Information Episode Created Date Number of Fetuses Patient Bloodtype Patient rh Status Prepregnancy Weight lbs Domestic Partner Domestic Partner Phone Father Name Metal Roofing Mechanic Status 03/08/20 24 1 CLOSED Fetus Data First Name Last Name Admitted to NICU Weight (g) Sex Living Outcome Pediatric Complications Fetus ID Race Codes Race Delivery Type M Full Term [id number] Vaginal Delivery Eleno Calculation Initial Eleno Date Initial Exam Date Initial Exam Provider Initial Ultrasound Date Last Menstrual Period Date Ultra Sound Weeks Gestation 0 Eighteen To Twenty Week Eleno Update Ultra Sound Date Fundal Height At Umbil Quickening Date Ultra Sound Latest Weeks Gestation Final Eleno Confirmed By Final Eleno Confirmed Date Final Eleno Date Ultra Sound Latest Days Gestation 0 0 Menstrual History Last Menstrual Date Menses Monthly On Bcp Conception Prior Menses Frequency Hcg Plus Date Menarche Onset Age Delivery Information Delivery Date Delivery Type Labor Anesthesia Weeks Gestation Incision Type Labor Labor Length Hrs Delivered By Post Complications Tubal Sterilization Discharge Date Comments 5 40 Discharge Information Feeding Method Contraceptive Method Maternal HG B and HCT Levels Ob Episode Information Episode Created Date Number of Fetuses Patient Bloodtype Patient rh Status Prepregnancy Weight lbs Domestic Partner Domestic Partner Phone Father Name Metal Roofing Mechanic Status 03/08/20 24 1 CLOSED Fetus Data First Name Last Name Admitted to NICU Weight (g) Sex Living Outcome Pediatric Complications Fetus ID Race Codes Race Delivery Type M Full Term [id number] Vaginal Delivery Eleno Calculation Initial Eleno Date Initial Exam Date Initial Exam Provider Initial Ultrasound Date Last Menstrual Period Date Ultra Sound Weeks Gestation 0 Eighteen To Twenty Week Eleno Update Ultra Sound Date Fundal Height At Umbil Quickening Date Ultra Sound Latest Weeks Gestation Final Eleno Confirmed By Final Eleno Confirmed Date Final Eleno Date Ultra Sound Latest Days Gestation 0 0 Menstrual History Last Menstrual Date Menses Monthly On Bcp Conception Prior Menses Frequency Hcg Plus Date Menarche Onset Age Delivery Information Delivery Date Delivery Type Labor Anesthesia Weeks Gestation Incision Type Labor Labor Length Hrs Delivered By Post Complications Tubal Sterilization Discharge Date Comments 0 40 Discharge Information Feeding Method Contraceptive Method Maternal HG B and HCT Levels Ob Episode Information Episode Created Date Number of Fetuses Patient Bloodtype Patient rh Status Prepregnancy Weight lbs Domestic Partner Domestic Partner Phone Father Name Metal Roofing Mechanic Status 03/08/20 24 1 CLOSED Fetus Data First Name Last Name Admitted to NICU Weight (g) Sex Living Outcome Pediatric Complications Fetus ID Race Codes Race Delivery Type , [place] ous [id number] Eleno Calculation Initial Eleno Date Initial Exam Date Initial Exam Provider Initial Ultrasound Date Last Menstrual Period Date Ultra Sound Weeks Gestation 0 Eighteen To Twenty Week Eleno Update Ultra Sound Date Fundal Height At Umbil Quickening Date Ultra Sound Latest Weeks Gestation Final Eleno Confirmed By Final Eleno Confirmed Date Final Eleno Date Ultra Sound Latest Days Gestation 0 0 Menstrual History Last Menstrual Date Menses Monthly On Bcp Conception Prior Menses Frequency Hcg Plus Date Menarche Onset Age Delivery Information Delivery Date Delivery Type Labor Anesthesia Weeks Gestation Incision Type Labor Labor Length Hrs Delivered By Post Complications Tubal Sterilization Discharge Date Comments 3 Discharge Information Feeding Method Contraceptive Method Maternal HG B and HCT Levels Ob Episode Information Episode Created Date Number of Fetuses Patient Bloodtype Patient rh Status Prepregnancy Weight lbs Domestic Partner Domestic Partner Phone Father Name Metal Roofing Mechanic Status 03/08/20 24 1 CLOSED Fetus Data First Name Last Name Admitted to NICU Weight (g) Sex Living Outcome Pediatric Complications Fetus ID Race Codes Race Delivery Type M Full Term [id number] Vaginal Delivery Eleno Calculation Initial Eleno Date Initial Exam Date Initial Exam Provider Initial Ultrasound Date Last Menstrual Period Date Ultra Sound Weeks Gestation 0 Eighteen To Twenty Week Eleno Update Ultra Sound Date Fundal Height At Umbil Quickening Date Ultra Sound Latest Weeks Gestation Final Eleno Confirmed By Final Eleno Confirmed Date Final Eleno Date Ultra Sound Latest Days Gestation 0 0 Menstrual History Last Menstrual Date Menses Monthly On Bcp Conception Prior Menses Frequency Hcg Plus Date Menarche Onset Age Delivery Information Delivery Date Delivery Type Labor Anesthesia Weeks Gestation Incision Type Labor Labor Length Hrs Delivered By Post Complications Tubal Sterilization Discharge Date Comments 2 40 Discharge Information Feeding Method Contraceptive Method Maternal HG B and HCT Levels
--- OUTSIDE RECORDS SUMMARY | 2025-08-13 01:45 | XMS_ITS | Clinical Summary ---
Author Organization Retail Info Address [address] [facility] Attn: Epic Prelude ADT JOSIE DELGADO [id number] Care Team Providers Care Choke Setter Name Role Phone Unavailable Primary Care Provider Unavailabl e Allergies No known active allergies Medications varenicline (CHANTIX) 1 mg Tablet Take 1 mg by mouth 2 times daily. 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 Gender Identity Not on file Sexual Orientation Not on file Last Filed Vital Signs Vital Sign Reading Time Taken Comments Blood Pressure 100/50 04/20/2016 6:31 PM CDT Pulse - - Temperature 36.6 C (97.9 F) 04/20/2016 6:31 PM CDT Respiratory Rate 18 04/20/2016 6:31 PM CDT Oxygen Saturation - - Inhaled Oxygen Concentration - - Weight 71.7 kg (158 lb) 04/20/2016 5:21 PM CDT Height 157.5 cm (5' 2) 04/20/2016 5:21 PM CDT Body Mass Index 28.9 04/20/2016 5:21 PM CDT Plan of Treatment Health Maintenance Due Date Last Done Comments DTAP/TDAP/TD VACCINES (1 - Tdap) 2000 HEPATITIS B VACCINES (1 of 3 - 19+ 3-dose series) 08/08 HPV/Cotest (21-29) 2002 HPV VACCINES (1 - 3-dose SCDM series) 2008 CERVICAL CANCER SCREENING 2011 HPV/Cotest (30-65) 2011 PAP SMEAR 2011 BREAST CANCER SCREENING 2021 INFLUENZA VACCINE (#1) 2025
--- NOTE | 2025-08-13 07:21 | PM.IMHP ---
H&P: HPI History of Present Illness Date/Time: 08/13/25 07:21 Chief Complaint: Menorrhagia Narrative: Patient is a 44 year old female who presents for hysteroscopic endometrial ablation and laparoscopic bilateral salpingectomy. She has a history of heavy menses that were previously controlled with Nuvaring, however she is no longer a candidate for estrogen containing medication due to a recent history of TIA. Since stopping Nuvaring, her cycles have become heavy and irregular. EMB was negative in the office. Risks and benefits of the procedure were discussed. She denies abdominal pain, headaches, dysuria, nausea, vomiting or fevers. Review of Systems Review of Systems: All systems reviewed & are unremarkable except as noted in HPI and below PMFSH Past Medical History Medical History Meniere's disease of both ears Migraine Connective tissue disorder hips Anxiety and depression Arthritis Surgical History Surgical History H/O toe surgery left great with hardware History of repair of anterior cruciate ligament of left knee Social History Social History Smoking packs per day: 0.5 Smoking cigarettes per day: 10.0 Years smoked: 30 Smoking pack-years: 15.00 Smoking status: Current every day smoker Tobacco type: cigarettes Alcohol intake: current Drinks per week: 5 Alcohol use details: rare social Substance use type: marijuana Other substance usage details: Daily Living arrangements: with family Gender identity (if verbalized by the patient): Female Spiritual care concerns: No Meds Home Medications and Allergies Home Medications ?Medication ?Instructions ?Recorded ?Confirmed ?Type aripiprazole 10 mg tablet 10 mg PO DAILY 01/11/23 08/13/25 History buspirone 10 mg tablet 10 mg PO DAILY 01/11/23 08/13/25 History sumatriptan succinate 50 mg tablet See Rx Instructions .Route .COMPLEX 01/11/23 08/03/25 History trazodone 50 mg tablet 50 mg PO HS PRN insomnia 08/03/25 08/13/25 History Allergies Allergy/AdvReac Type Severity Reaction Status Date / Time No Known Allergies Allergy Verified 08/13/25 07:17 Exam Const: General: comfortable and no acute distress HENMT: Mouth: Yes moist mucous membranes Resp: Effort & Inspection: normal respiratory effort Cardio: Rate: regular rate Extrem: General: normal to inspection Psych: Mental Status: mental status grossly normal Assessment and Plan Assessment and plan (1) Menorrhagia with irregular cycle: Code(s): N92.1 - Excessive and frequent menstruation with irregular cycle Status: Acute Assessment and Plan: - long hx of menorrhagia, previously controlled with Nuvaring prior to TIA - estrogen now contraindicated - does not desire any further medical management attempts - interested in endometrial ablation with bilateral salpingectomy - discussed risks of surgery, including bleeding, infection, and injury to adjacent structures - EMB negative for hyperplasia or malignancy - will proceed with endometrial ablation with bilateral salpingectomy
[2025-08-13] MEDS: ACETAMINOPHEN 500 MG TABLET 1000 MG PO (07:44)
--- NOTE | 2025-08-13 08:10 | WPDHPUPDATE1 ---
History and Physical Update Update Date/Time: 08/13/25 08:10 History and Physical has been reviewed, including an updated exam of the patient. There are NO changes in the patient's condition. Risks, benefits, and alternatives have been discussed and questions answered. Patient agrees to proceed with procedure.
[2025-08-13] MEDS: KETOROLAC 15 MG/ML VIAL (*BKC) IV PUSH (08:12)
--- NOTE | 2025-08-13 08:16 | WPDANESEPPF ---
Anes - Initial Pre Proc Eval Procedure: Operation Date: 08/13/25 09:00 Proposed Procedures p Hysteroscopy with Christina Endometrial Ablation - Silver Solano MD s Bilateral Laparoscopic Salpingectomy - Silver Solano MD Date/Time: 08/13/25 08:16 Surgeon: Silver Solano MD Pre Op Diagnosis: menorrhagia, irregular cycle Patient Data Age: 44 Gender: F Height: 1.57 m Weight: 83.4 kg Last Vital Signs Temp 36.2 C L 08/13/25 07:15 Pulse 77 08/13/25 07:15 Resp 20 08/13/25 07:15 BP 127/71 08/13/25 07:15 Pulse Ox 100 08/13/25 07:15 O2 Del Method Room Air 08/13/25 07:15 Allergies Allergy/AdvReac Type Severity Reaction Status Date / Time No Known Allergies Allergy Verified 08/13/25 07:17 Home Medications ?Medication ?Instructions ?Recorded ?Confirmed ?Type aripiprazole 10 mg tablet 10 mg PO DAILY 01/11/23 08/13/25 History buspirone 10 mg tablet 10 mg PO DAILY 01/11/23 08/13/25 History sumatriptan succinate 50 mg tablet See Rx Instructions .Route .COMPLEX 01/11/23 08/03/25 History trazodone 50 mg tablet 50 mg PO HS PRN insomnia 08/03/25 08/13/25 History ibuprofen 600 mg tablet 600 mg PO Q6H PRN pain #30 tabs 08/13/25 Rx Patient hx anesthesia problems: none Family hx anesthesia problems: none Results Review: All pre-operative results and documents have been reviewed as part of the pre-operative evaluation. COUNT INCLUDES THE [facility] Past Medical History Medical History Meniere's disease of both ears Migraine Connective tissue disorder hips Anxiety and depression Arthritis Surgical History Surgical History H/O toe surgery left great with hardware History of repair of anterior cruciate ligament of left knee Social History Social History Smoking packs per day: 0.5 Smoking cigarettes per day: 10.0 Years smoked: 30 Smoking pack-years: 15.00 Smoking status: Current every day smoker Tobacco type: cigarettes Alcohol intake: current Drinks per week: 5 Alcohol use details: rare social Substance use type: marijuana Other substance usage details: Daily Living arrangements: with family Gender identity (if verbalized by the patient): Female Spiritual care concerns: No Anes - Eval Final PreProcedure Day of Procedure 08/13/25 08:16 Patient weight: obese Heart: regular rate and rhythm Lungs: clear to auscultation Airway: Mallampati scale class 1 Neurological: alert and oriented Last oral intake: >/= 8 hours ASA classification: III Emergent: no Anesthetic plan: proceed Anesthesia type and monitoring: general ETT and standard monitoring Results Review: All pre-operative results and documents have been reviewed as part of the pre-operative evaluation. Informed Consent: The patient's anesthetic plan and its attendant risks and benefits were discussed with the patient/family/POA. Questions were solicited and answers provided to the satisfaction of the patient/family/POA.
[2025-08-13 08:42] LABS: BEDSIDEPREGUCG Negative (Negative)
--- NOTE | 2025-08-13 09:06 | S_PTH ---
PATIENT: Missy Casiano LOC: [facility] U#:[id number] AGE/SX: 44/F ROOM: RE08/13/[address]: Silver Solano MD : 1980 BED: DIS: 08/13/2025 SPEC #: [id number] RECD: 08/13/25 10:55 STATUS: ZAHRA REMaribell #: [id number] IVAN: 08/13/25 09:[address]: Silver Solano DEPT: [facility] Surgical RECD BY: Mireya Velazco ENTERED: 08/13/25 10:55 SP TYPE: Surgical OTHR DR: Sierra Martin, SALES APPLICATIONS ENGINEER Tissues: A - Fallopian Tube Bilateral Procedures: Gross and Microscopic Level 2 Hematoxylin and Eosin Stain
[2025-08-13] MEDS: LIDO 1%/EPINEPHRINE 1:100,000 20 ML VIAL 7 ML INFILTRATE (09:20)
[2025-08-13] MEDS: LACTATED RINGERS 1,000 ML 30 ML IV CONT ×2 (09:31→09:47)
--- NOTE | 2025-08-13 09:39 | P.OP_ITS ---
Procedure Note - Detailed Date of Procedure 08/13/25 Pre-op Diagnosis menorrhagia, irregular cycle Post-op Diagnosis Same Procedure Performed laparoscopic bilateral salpingectomy, hysteroscopy and endometrial ablation Surgeon Silver Solano MD Anesthesia General Indications menorrhagia with irregular cycle Findings laparoscopy: normal appearing uterus, bilateral fallopian tubes and ovaries; hysteroscopy: normal tubal ostia, normal endometrial cavity Description of Procedure With IV fluids infusing, the patient was taken to the operating room. The patient was placed in supine position and SCDs were placed on the lower extremities. General anesthesia with endotracheal intubation was given. A time- out took place. The patient was placed in dorsal lithotomy position using Anjel stirrups and she was prepped and draped in the usual sterile fashion. The bladder was drained of clear urine using a red rubber catheter. A sterile speculum was placed vaginally, the anterior lip of the cervix was grasped with a single-tooth tenaculum and the acorn uterine manipulator was placed without difficulty. The speculum was removed. The surgeon's gloves were changed and attention was turned to the abdomen. A 5 mm incision was made in the umbilicus. Under direct visualization with the scope, the umbilical port was inserted without difficulty. Another two trocars were placed under direct visualization in the left upper and left lower quadrants. The patient was placed in Trendelenburg and inspection of the pelvis noted the above findings. Appropriate pictures were taken. Using the LigaSure devise, a left salpingectomy was performed in the usual fashion. Care was taken to avoid the IP ligament. The same procedure was performed on the right. The instruments were all removed from the abdomen and the CO2 gas was allowed to escape. A bivalved speculum was then inserted into the patient's vagina.?The acorn manipulator was removed. The uterus was sounded to 10 cm.? At this point, the? hysteroscope was then inserted into the uterine cavity. Saline was used as the distension medium. The above findings were noted. Both tubal ostia were visualized and pictures were taken.? The hysteroscope was then removed. The cervical length was then measured using the dilator and measured 5 cm.? The cervix was further dilated to accommodate the Christina device. The Christina device was then opened and the uterine cavity length set at 5 cm.? The device was deployed, the mesh examined, and then reinserted into the sheath.? The device was then inserted into the uterine cavity, deployed, and cavity width m easurement was appropriate.? The cavity assessment was performed and was within normal limits.? The device was then activated.? Once the ablation was completed the device was removed and the hysteroscope reinserted.? The burn was noted to be equal and adequate.? The hysteroscope and tenaculum were removed.? The anterior lip of the cervix was hemostatic, the bivalve speculum was then removed.? The three skin incisions were reapproximated with 4-0 Polysorb in a subcuticular manner, followed by skin glue. The patient tolerated the procedure well.? Sponge, lap, needle, and instrument counts were correct X3.? The patient was taken out of the dorsal lithotomy position and awakened from anesthesia and taken to the recovery room in stable condition. Estimated Blood Loss 10 Urine Output 150 Pathology Yes Complications No immediate complications Condition Stable Disposition Same day
[2025-08-13] MEDS: fentaNYL CITRATE INJ (*CRX) 100 MCG/2 ML VIAL 25 MCG IV PUSH (09:56)
[2025-08-13] MEDS: oxyCODONE HCL (*CRX) 5 MG TAB IR PO (10:38)
== END 2025-08-13 11:15 | disposition home or self-care (01) ==
PROVIDERS: PCP Nurse Practitioner; Visit Provider Obstetrics & Gynecology
PROC: 0U5B8ZZ Destruction of Endometrium, Via Natural or Artificial Opening Endoscopic (ICD-10-PCS; CPT 58563; principal; 2025-08-13 09:00)
PROC: (CPT 49320; 2025-08-13 09:00)
DX: N92.1 Excessive and frequent menstruation with irregular cycle (principal); F41.8 Other specified anxiety disorders; M19.90 Unspecified osteoarthritis, unspecified site; L94.8 Other specified localized connective tissue disorders; H81.03 Meniere's disease, bilateral; F17.210 Nicotine dependence, cigarettes, uncomplicated; E66.9 Obesity, unspecified; Z68.33 Body mass index [BMI] 33.0-33.9, adult; Z79.1 Long term (current) use of non-steroidal anti-inflammatories (NSAID); Z98.890 Other specified postprocedural states
CPT/HCPCS: 58661; 58563; 88302; A9270; J1100; J1885; J2003; J2004; J2250; J2405; J2704; J3010; J7120